=== PATIENT | female | born 1945 | race Caucasian/White ===

== ENCOUNTER 2018-02-11 10:02 | Emergency (ER) | payer MEDICARE, BC ==
[2018-02-11 10:16] VITALS: BP 159/76
--- NOTE | 2018-02-11 11:42 | EDM.PDOC ---
ED HPI GENERAL MEDICAL PROBLEM - General Chief Complaint: Abdominal Pain Stated Complaint: ABDOMINAL PAIN Time Seen by Provider: 02/11/18 10:13 Source of Information: Reports: Patient, RN Notes Reviewed - History of Present Illness INITIAL COMMENTS - FREE TEXT/NARRATIVE: 72 year old female comes in with intermitant upper abd pain and pain LLQ for about 1 week. Was worse this morning, now almost gone. No fever or chills. No N/V or diarrhea, occas. constipation, last BM yesterday. No chest pain or difficulty breathing. Hx of prior appy about 8 yrs ago. Abdominal Pain Score (Numeric/FACES): 7 - Related Data Allergies Allergy/AdvReac Type Severity Reaction Status Date / Time hydromorphone HCl Allergy Syncope Verified 02/11/18 10:12 [From Dilaudid] Penicillins Allergy Hives Verified 02/11/18 10:12 Home Meds: Home Meds Escitalopram Oxalate [Lexapro] 20 mg PO DAILY 06/02/16 [History] Levothyroxine 175 mcg PO ACBRK 06/02/16 [History] Lisinopril/Hydrochlorothiazide [Lisinopril-Hctz 20-12.5 mg Tab] 1 tab PO BID 03/15 [History] Past Medical History Cardiovascular History: Reports: Hypertension [employer] History: Reports: Musculoskeletal History: Reports: Arthritis Psychiatric History: Reports: Anxiety Endocrine/Metabolic History: Reports: Hypothyroidism - Infectious Disease History Infectious Disease History: Reports: Chicken Pox, Measles, Mumps - Past Surgical History GI Surgical History: Reports: Appendectomy, Other (See Below) Other GI Surgeries/Procedures: peritonitis from ruptured appendix Social & Family History - Tobacco Use Smoking Status *Q: Never Smoker - Recreational Drug Use Recreational Drug Use: No ED ROS GENERAL - Review of Systems Review Of Systems: See Below Constitutional: Denies: Fever, Chills HEENT: Denies: Throat Pain Respiratory: Denies: Shortness of Breath, Pleuritic Chest Pain, Cough Cardiovascular: Denies: Chest Pain, Palpitations GI/Abdominal: Reports: Abdominal Pain. Denies: Constipation, Diarrhea, Decreased Appetite, Nausea, Vomiting Musculoskeletal: Reports: No Symptoms Skin: Reports: No Symptoms Neurological: Reports: No Symptoms ED EXAM, GI/ABD - Physical Exam Exam: See Below General Appearance: Alert, No Apparent Distress Throat/Mouth: Normal Inspection Head: Atraumatic Neck: Supple Respiratory/Chest: No Respiratory Distress, Lungs Clear, Normal Breath Sounds Cardiovascular: Normal Peripheral Pulses, Regular Rate, Rhythm GI/Abdominal Exam: Soft, Other (minimal tenderness upper mid abd, LLQ and remainder of abd nontender at this time) Back Exam: No: CVA Tenderness (L), CVA Tenderness (R) Extremities: Normal Inspection. No: Pedal Edema, Leg Pain Neurological: Alert, Oriented, No Motor/Sensory Deficits Course - Vital Signs Last Recorded V/S: Last Vital Signs Temp 98.5 F 02/11/18 10:12 Pulse 77 02/11/18 10:12 Resp 20 02/11/18 10:12 BP 159/76 H 02/11/18 10:12 Pulse Ox 96 02/11/18 10:12 - Orders/Labs/Meds Orders: Active Orders 24 hr Category Date Time Status Abdomen 2V AP Flat Upright [CR] Stat Exams 02/11/18 11:09 Taken Labs: Laboratory Tests 02/11/18 02/11/18 Range/Units 11:51 11:51 WBC 6.57 (3.98-10.04) K/mm3 RBC 4.32 (3.98-5.22) M/mm3 Hgb 12.5 (11.2-15.7) gm/L Hct 38.9 (34.1-44.9) % MCV 90.0 (79.4-94.8) fl MCH 28.9 (25.6-32.2) pg MCHC 32.1 L (32.2-35.5) g/dl RDW Std Deviation 44.4 (36.4-46.3) fL Plt Count 249 (182-369) K/mm3 MPV 10.8 (9.4-12.3) fl Neut % (Auto) 64.9 (34.0-71.1) % Lymph % (Auto) 24.7 (19.3-51.7) % [place] % (Auto) 6.2 (4.7-12.5) % Eos % (Auto) 3.2 (0.7-5.8) Baso % (Auto) 0.5 (0.1-1.2) % Neut # (Auto) 4.27 (1.56-6.13) K/mm3 Lymph # (Auto) 1.62 (1.18-3.74) K/mm3 [place] # (Auto) 0.41 H (0.24-0.36) K/mm3 Eos # (Auto) 0.21 (0.04-0.36) K/mm3 Baso # (Auto) 0.03 (0.01-0.08) K/mm3 C-Reactive Protein 1.9 H* (<1.0) mg/dL - Re-Assessments/Exams Free Text/Narrative Re-Assessment/Exam: 02/11/18 15:10 WBC good, CRP very mildly elevated, I did not feel any sign of hernia on initial exam, on repeat exam when sitting she does have a bit of a buldge to the L of her inciscion when pressure applied to abd wall. X rays are fine. Discharge instr. as documeted. Departure - Departure Time of Disposition: 12:53 Disposition: Home, Self-Care 01 Condition: Fair Clinical Impression: Abdominal pain Qualifiers: Abdominal location: upper abdomen, unspecified Qualified Code(s): R10.10 - Upper abdominal pain, unspecified - Discharge Information Instructions: Abdominal Pain, Adult, [id number] Referrals: PCP,Not In Area [Primary Care Provider] - Forms: ED Department Discharge Additional Instructions: start a stool softener once or twice daily, drink plenty of water to maintain hydration, high fiber diet, See Dr Cano, General Surgeon at our [facility] medical clinic next available appt. Call [phone] for appt. Return to ED as needed if symptoms worsening in any way. - My Orders Last 24 Hours: My Active Orders 02/11/18 11:09 Abdomen 2V AP Flat Upright [CR] Stat - Assessment/Plan Last 24 Hours: My Active Orders 02/11/18 11:09 Abdomen 2V AP Flat Upright [CR] Stat
--- NOTE | 2018-02-12 10:00 | CR ---
Abdomen: Supine and upright views of the abdomen were obtained. Comparison: No previous abdominal x-ray. Bowel gas pattern appears normal. Slight scoliosis is present within the spine with minimal degenerative change. Small calcification is seen within the left pelvis compatible with incidental phlebolith. No other abnormal calcifications are seen. No soft tissue abnormality is seen. No free air is seen. Impression: 1. Incidental findings. Diagnostic code #2
== END 2018-02-11 13:19 | disposition home or self-care (01) ==
LOC: JD.ED 10:02
DX: R10.10 Upper abdominal pain, unspecified (principal); I10 Essential (primary) hypertension; E03.9 Hypothyroidism, unspecified; Z88.5 Allergy status to narcotic agent; Z88.0 Allergy status to penicillin; Z79.899 Other long term (current) drug therapy
CPT/HCPCS: 36415; 74019; 74019-26; 85025; 86140; 99284

== ENCOUNTER 2018-02-28 12:10 | Inpatient (IN) | payer MEDICARE, BC ==
[2018-02-28] MEDS ORDERED: Sodium Chloride 0.9% 10 ML Syringe FLUSH PRN ×2 (12:26→14:18)
[2018-02-28] MEDS ORDERED: Diltiazem 25 MG/5 ML SDV IVPUSH ONE ×3 (12:43→15:11)
[2018-02-28] MEDS ORDERED: Aspirin 81 MG Tab.Chew PO ONE (12:43)
[2018-02-28] MEDS ORDERED: Magnesium Sulfate/Water 2 GM in Premix Bag 1 BAG IV ONE (12:45)
[2018-02-28] MEDS ORDERED: Sodium Chloride 0.9% 1,000 ML IV SCH (12:45)
--- NOTE | 2018-02-28 12:54 | EDM.PDOC ---
ED HPI GENERAL MEDICAL PROBLEM - General Chief Complaint: Cardiovascular Problem Stated Complaint: HEART PROBLEMS Time Seen by Provider: 02/28/18 12:33 Source of Information: Reports: Patient History Limitations: Reports: No Limitations - History of Present Illness INITIAL COMMENTS - FREE TEXT/NARRATIVE: Patient is a 72 y/o female who presents to the E.D. complaining of irregular fast heart beat. 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 States she has been experiencing this for the past month. Episodes initially were short easily converting with holding her breath and thumping on her chest. Patient states as of recent the frequency of episodes and duration have increased. Yesterday the palpitations lasted almost all day. After eventually converting. States that today the palpitations are, about to not relieved with the above therapies. She's taken aspirin on intermittent basis. She is on no active anticoagulants. She has not seen her primary care provider for this. She does complain of some mild shortness of breath with exertion. No dizziness, no chest pain, no nausea no vomiting, no abdominal pain, no fever, no increased swelling to extremities, no PND, no orthopnea, no pain to the posterior aspect of the calves, no recent surgery, long distance travel, or history of DVT/PE. She has history of hypertension and is on lisinopril and HCTZ. Hypothyroidism on levothyroxine. Anxiety and depression on Lexapro. Patient does not smoke. She has no history of hypercholesteremia. 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: Other (see below) Other Treatments ASSOCIATE PROFESSOR OF LITERACY: none - Related Data Allergies Allergy/AdvReac Type Severity Reaction Status Date / Time Penicillins Allergy Hives Verified 02/28/18 17:26 hydromorphone HCl AdvReac Syncope Verified 03/01/18 07:20 [From Dilaudid] Home Meds: Home Meds Escitalopram Oxalate [Lexapro] 20 mg PO DAILY 06/02/16 [History] Levothyroxine 175 mcg PO ACBRK 06/02/16 [History] Lisinopril/Hydrochlorothiazide [Lisinopril-Hctz 20-12.5 mg Tab] 1 tab PO BID 03/15 [History] Acetaminophen [Tylenol Extra Strength] 500 mg PO BID 02/28/18 [History] Past Medical History Cardiovascular History: Reports: Hypertension 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: Musculoskeletal History: Reports: Arthritis Psychiatric History: Reports: Anxiety Endocrine/Metabolic History: Reports: Hypothyroidism - Infectious Disease History Infectious Disease History: Reports: Chicken Pox, Measles, Mumps - Past Surgical History GI Surgical History: Reports: Appendectomy, Hernia, Abdominal, Other (See Below) Other GI Surgeries/Procedures: peritonitis from ruptured appendix Social & Family History - Tobacco Use Smoking Status *Q: Never Smoker - Caffeine Use Caffeine Use: Reports: Coffee, Soda, Tea - Recreational Drug Use Recreational Drug Use: No ED ROS GENERAL - Review of Systems Review Of Systems: ROS reveals no pertinent complaints other than HPI. ED EXAM, GENERAL - Physical Exam Exam: See Below Exam Limited By: No Limitations General Appearance: Alert, WD/WN, No Apparent Distress Ears: Hearing Grossly Normal Nose: Normal Inspection Throat/Mouth: Normal Voice, No Airway Compromise Neck: Normal Inspection, Supple Respiratory/Chest: No Respiratory Distress, Lungs Clear, Normal Breath Sounds, No Accessory Muscle Use, Chest Non-Tender Cardiovascular: Normal Peripheral Pulses, Tachycardia, Irregularly Irregular Peripheral Pulses: 4+: Radial (L), Radial (R) GI/Abdominal: Normal Bowel Sounds, Soft, Non-Tender, No Organomegaly, No Distention Back Exam: Normal Inspection Extremities: Normal Inspection, Non-Tender, Normal Capillary Refill Neurological: Alert, Oriented, CN II-XII Intact, Normal Cognition, No Motor/ Sensory Deficits Psychiatric: Normal Affect, Normal Mood Skin Exam: Warm, Dry, Intact, Normal Color Course - Vital Signs Last Recorded V/S: Last Vital Signs Temp 98 F 03/01/18 07:44 Pulse 64 03/01/18 09:13 Resp 22 H 03/01/18 07:44 BP 96/60 03/01/18 09:13 Pulse Ox 94 L 03/01/18 04:00 - Orders/Labs/Meds Orders: Active Orders 24 hr Category Date Time Status Ambulate [RC] ASDIRECTED Care 02/28/18 15:33 Active Cardiac Monitoring [RC] CONTINUOUS Care 02/28/18 15:33 Active Height and Weight [RC] 04 Care 02/28/18 15:33 Active Intake and Output [RC] 04,16 Care 02/28/18 15:33 Active Oxygen Therapy [RC] .PRN Care 02/28/18 12:25 Active RT Aerosol Therapy [RC] ASDIRECTED Care 02/28/18 15:34 Active Up ad Paulette [RC] ASDIRECTED Care 02/28/18 15:33 Active VTE/DVT Education [RC] 10,22 Care 02/28/18 15:33 Active Consult to Case Management [CONS] Routine Cons 02/28/18 15:34 Active Consult to Sharepoint Net Developer [CONS] Routine Cons 02/28/18 15:34 Active Consult to Brand Coordinator [CONS] Routine Cons 02/28/18 15:34 Active Heart Healthy Diet [DIET] Diet 02/28/18 Dinner Active BASIC METABOLIC PANEL,BMP [CHEM] AM Lab 03/02/18 05:11 Ordered BASIC METABOLIC PANEL,BMP [CHEM] AM Lab 03/03/18 05:11 Ordered DD [D-DIMER QUANTITATIVE] [COAG] Stat Lab 02/28/18 12:50 Ordered MAGNESIUM [CHEM] AM Lab 03/02/18 05:11 Ordered MAGNESIUM [CHEM] AM Lab 03/03/18 05:11 Ordered Acetaminophen [Tylenol] Med 02/28/18 15:33 Active 650 mg PO Q4H PRN Acetaminophen/HYDROcodone [[place] 325-5 MG] Med 02/28/18 15:33 Active 1 tab PO Q4H PRN Albuterol/Ipratropium [DuoNeb 3.0-0.5 MG/3 ML] Med 02/28/18 15:33 Active 3 ml NEB Q4H PRN Bisacodyl [Dulcolax] Med 02/28/18 15:33 Active 5 mg PO DAILY PRN Citalopram [Celexa] Med 03/01/18 09:00 Active 40 mg PO DAILY Diltiazem 125 mg Med 02/28/18 15:15 Active Sodium Chloride 0.9% [Normal Saline] 100 ml IV TITRATE Docusate Sodium [Colace] Med 02/28/18 15:33 Active 100 mg PO BID PRN Docusate Sodium/Sennosides [Senna Plus] Med 02/28/18 15:33 Active 1 tab PO BID PRN LORazepam [Ativan] Med 02/28/18 15:33 Active 1 mg IV Q6H PRN Metoprolol Tartrate [Lopressor] Med 02/28/18 15:32 Active 5 mg IVPUSH Q4H PRN Metoprolol Tartrate [Lopressor] Med 02/28/18 21:00 Active 50 mg PO Q12HR Ondansetron [Zofran] Med 02/28/18 15:33 Active 4 mg IV Q6H PRN Polyethylene Glycol 3350 [MiraLAX] Med 02/28/18 15:33 Active 17 gm PO DAILY PRN Potassium Rep Pharmacy to Dose [Pharmacy to Dose - Med 02/28/18 15:45 Active Potassium Replacement] 1 dose .XX ASDIRECTED Promethazine [Phenergan] 12.5 mg Med 02/28/18 15:33 Active Sodium Chloride 0.9% [Normal Saline] 50 ml IV Q6H Sodium Chloride 0.9% [Saline Flush] Med 02/28/18 12:26 Active 10 ml FLUSH ASDIRECTED PRN Sodium Chloride 0.9% [Saline Flush] Med 02/28/18 14:18 Active 10 ml FLUSH ONETIME PRN Temazepam [Restoril] Med 02/28/18 15:33 Active 7.5 mg PO BEDTIME PRN hydrALAZINE [Apresoline] Med 02/28/18 15:32 Active 20 mg IVPUSH Q4H PRN Peripheral IV Insertion Adult [OM.PC] Routine Oth 02/28/18 12:26 Ordered Resuscitation Status Routine Resus Stat 02/28/18 15:33 Ordered Medication Orders Acetaminophen (Tylenol) 650 mg PO Q4H PRN PRN Reason: Pain (Mild 1-3)/fever Acetaminophen (Tylenol) 487.5 mg PO BID [facility] Last Admin: 03/01/18 09:14 Dose: 487.5 mg Admin: 02/28/18 20:24 Dose: 487.5 mg Hydrocodone Bitart/Acetaminophen ([place] 325-5 Mg) 1 tab PO Q4H PRN PRN Reason: Pain (moderate 4-6) Albuterol/Ipratropium (Duoneb 3.0-0.5 Mg/3 Ml) 3 ml NEB Q4H PRN PRN Reason: Shortness Of Breath/wheezing Apixaban (Eliquis) 5 mg PO BID [facility] Last Admin: 03/01/18 09:11 Dose: 5 mg Admin: 02/28/18 20:25 Dose: 5 mg Bisacodyl (Dulcolax) 5 mg PO DAILY PRN PRN Reason: Constipation Citalopram Hydrobromide (Celexa) 40 mg PO DAILY [facility] Last Admin: 03/01/18 09:11 Dose: Not Given Docusate Sodium (Colace) 100 mg PO BID PRN PRN Reason: Constipation Hydralazine HCl (Apresoline) 20 mg IVPUSH Q4H PRN PRN Reason: Hypertension Hydrochlorothiazide (Hydrochlorothiazide) 12.5 mg PO BID [facility] Last Admin: 03/01/18 09:13 Dose: Diltiazem HCl 125 mg/ Sodium (Chloride) 125 mls @ 5 mls/hr IV TITRATE [facility]; Protocol Last Titration: 02/28/18 20:25 Dose: 0 mg/hr, 0 mls/hr Titration: 02/28/18 20:14 Dose: 3 mg/hr, 3 mls/hr Titration: 02/28/18 18:47 Dose: 5 mg/hr, 5 mls/hr Titration: 02/28/18 18:02 Dose: 3 mg/hr, 3 mls/hr Admin: 02/28/18 15:54 Dose: 5 mg/hr, 5 mls/hr Promethazine HCl 12.5 mg/ (Sodium Chloride) 50.5 mls @ 100 mls/hr IV Q6H PRN PRN Reason: Nausea/Vomiting Levothyroxine Sodium (Levothyroxine) 150 mcg PO ACBRK [facility] Last Admin: 03/01/18 06:22 Dose: 150 mcg Lisinopril (Prinivil) 20 mg PO BID [facility] Last Admin: 03/01/18 09:16 Dose: Lorazepam (Ativan) 1 mg IV Q6H PRN PRN Reason: Anxiety Metoprolol Tartrate (Lopressor) 5 mg IVPUSH Q4H PRN PRN Reason: Tachycardia Metoprolol Tartrate (Lopressor) 50 mg PO Q12HR [facility] Last Admin: 03/01/18 09:13 Dose: 50 mg Admin: 02/28/18 20:25 Dose: 50 mg Ondansetron HCl (Zofran) 4 mg IV Q6H PRN PRN Reason: Nausea/Vomiting Polyethylene Glycol (Miralax) 17 gm PO DAILY PRN PRN Reason: Constipation Potassium Chloride (Pharmacy To Dose - Potassium Replacement) 1 dose .XX ASDIRECTED [facility] Senna/Docusate Sodium (Senna Plus) 1 tab PO BID PRN PRN Reason: Constipation Sodium Chloride (Saline Flush) 10 ml FLUSH ASDIRECTED PRN PRN Reason: Keep Vein Open Last Admin: 02/28/18 12:57 Dose: 10 ml Sodium Chloride (Saline Flush) 10 ml FLUSH ONETIME PRN PRN Reason: IV FLUSH Last Admin: 02/28/18 14:42 Dose: 10 ml Temazepam (Restoril) 7.5 mg PO BEDTIME PRN PRN Reason: Sleep Labs: Laboratory Tests 02/28/18 02/28/18 02/28/18 Range/Units 12:24 12:24 12:24 WBC 10.05 H (3.98-10.04) K/mm3 RBC 4.32 (3.98-5.22) M/mm3 Hgb 12.4 (11.2-15.7) gm/L Hct 37.8 (34.1-44.9) % MCV 87.5 (79.4-94.8) fl MCH 28.7 (25.6-32.2) pg MCHC 32.8 (32.2-35.5) g/dl RDW Std Deviation 41.7 (36.4-46.3) fL Plt Count 296 (182-369) K/mm3 MPV 10.7 (9.4-12.3) fl Neutrophils % (Manual) 52 (40-60) % Band Neutrophils % 0 (0-10) % Lymphocytes % (Manual) 41 H (20-40) % Atypical Lymphs % 0 % Monocytes % (Manual) 4 (2-10) % Eosinophils % (Manual) 3 (0.7-5.8) % Basophils % (Manual) 0 L (0.1-1.2) Platelet Estimate Adequate RBC Morph Comment Normal PT (8.0-13.0) SECONDS INR APTT (22-36) SECONDS D-Dimer, Quantitative (0.19-0.59) mg/L Sodium 139 (136-145) mEq/L Potassium 3.8 (3.5-5.1) mEq/L Chloride 101 (98-107) mEq/L Carbon Dioxide 24 (21-32) mEq/L Anion Gap 17.8 H (5-15) BUN 24 H (7-18) mg/dL Creatinine 0.9 (0.55-1.02) mg/dL Est Cr Clr Drug Dosing 52.34 mL/min Estimated GFR (MDRD) > 60 (>60) mL/min BUN/Creatinine Ratio 26.7 H (14-18) Glucose 120 H (80-115) mg/dL Hemoglobin A1c (4.50-6.20) % Calcium 9.0 (8.5-10.1) mg/dL Magnesium 1.6 L (1.8-2.4) mg/dl Total Bilirubin 0.4 (0.2-1.0) mg/dL AST 15 (15-37) U/L ALT 19 (14-59) U/L Alkaline Phosphatase 73 (46-116) U/L Troponin I < 0.017 (0.00-0.056) ng/mL NT-Pro-B Natriuret Pep 348 H (0-125) pg/mL Total Protein 7.5 (6.4-8.2) g/dl Albumin 3.4 (3.4-5.0) g/dl Globulin 4.1 gm/dL Albumin/Globulin Ratio 0.8 L (1-2) Free T4 (0.76-1.46) ng/dL TSH 3rd Generation 0.318 L (0.358-3.74) uIU/mL Urine Color (Yellow) Urine Appearance (Clear) Urine pH (5.0-8.0) Ur Specific [place] (1.005-1.030) Urine Protein (Negative) Urine Glucose (UA) (Negative) Urine Ketones (Negative) Urine Occult Blood (Negative) Urine Nitrite (Negative) Urine Bilirubin (Negative) Urine Urobilinogen (0.2-1.0) Ur Leukocyte Esterase (Negative) Urine RBC (0-5) /hpf Urine WBC (0-5) /hpf Ur Epithelial Cells (0-5) /hpf Urine Bacteria (FEW) /hpf Urine Mucus (FEW) /hpf 02/28/18 02/28/18 02/28/18 Range/Units 12:24 12:50 12:50 WBC (3.98-10.04) K/mm3 RBC (3.98-5.22) M/mm3 Hgb (11.2-15.7) gm/L Hct (34.1-44.9) % MCV (79.4-94.8) fl MCH (25.6-32.2) pg MCHC (32.2-35.5) g/dl RDW Std Deviation (36.4-46.3) fL Plt Count (182-369) K/mm3 MPV (9.4-12.3) fl Neutrophils % (Manual) (40-60) % Band Neutrophils % (0-10) % Lymphocytes % (Manual) (20-40) % Atypical Lymphs % % Monocytes % (Manual) (2-10) % Eosinophils % (Manual) (0.7-5.8) % Basophils % (Manual) (0.1-1.2) Platelet Estimate RBC Morph Comment PT 10.7 (8.0-13.0) SECONDS INR 1.00 APTT 28 (22-36) SECONDS D-Dimer, Quantitative 1.11 H (0.19-0.59) mg/L Sodium (136-145) mEq/L Potassium (3.5-5.1) mEq/L Chloride (98-107) mEq/L Carbon Dioxide (21-32) mEq/L Anion Gap (5-15) BUN (7-18) mg/dL Creatinine (0.55-1.02) mg/dL Est Cr Clr Drug Dosing mL/min Estimated GFR (MDRD) (>60) mL/min BUN/Creatinine Ratio (14-18) Glucose (80-115) mg/dL Hemoglobin A1c 5.60 (4.50-6.20) % Calcium (8.5-10.1) mg/dL Magnesium (1.8-2.4) mg/dl Total Bilirubin (0.2-1.0) mg/dL AST (15-37) U/L ALT (14-59) U/L Alkaline Phosphatase (46-116) U/L Troponin I (0.00-0.056) ng/mL NT-Pro-B Natriuret Pep (0-125) pg/mL Total Protein (6.4-8.2) g/dl Albumin (3.4-5.0) g/dl Globulin gm/dL Albumin/Globulin Ratio (1-2) Free T4 (0.76-1.46) ng/dL TSH 3rd Generation (0.358-3.74) uIU/mL Urine Color (Yellow) Urine Appearance (Clear) Urine pH (5.0-8.0) Ur Specific [place] (1.005-1.030) Urine Protein (Negative) Urine Glucose (UA) (Negative) Urine Ketones (Negative) Urine Occult Blood (Negative) Urine Nitrite (Negative) Urine Bilirubin (Negative) Urine Urobilinogen (0.2-1.0) Ur Leukocyte Esterase (Negative) Urine RBC (0-5) /hpf Urine WBC (0-5) /hpf Ur Epithelial Cells (0-5) /hpf Urine Bacteria (FEW) /hpf Urine Mucus (FEW) /hpf 02/28/18 02/28/18 02/28/18 Range/Units 15:05 15:05 15:20 WBC (3.98-10.04) K/mm3 RBC (3.98-5.22) M/mm3 Hgb (11.2-15.7) gm/L Hct (34.1-44.9) % MCV (79.4-94.8) fl MCH (25.6-32.2) pg MCHC (32.2-35.5) g/dl RDW Std Deviation (36.4-46.3) fL Plt Count (182-369) K/mm3 MPV (9.4-12.3) fl Neutrophils % (Manual) (40-60) % Band Neutrophils % (0-10) % Lymphocytes % (Manual) (20-40) % Atypical Lymphs % % Monocytes % (Manual) (2-10) % Eosinophils % (Manual) (0.7-5.8) % Basophils % (Manual) (0.1-1.2) Platelet Estimate RBC Morph Comment PT (8.0-13.0) SECONDS INR APTT (22-36) SECONDS D-Dimer, Quantitative (0.19-0.59) mg/L Sodium (136-145) mEq/L Potassium (3.5-5.1) mEq/L Chloride (98-107) mEq/L Carbon Dioxide (21-32) mEq/L Anion Gap (5-15) BUN (7-18) mg/dL Creatinine (0.55-1.02) mg/dL Est Cr Clr Drug Dosing mL/min Estimated GFR (MDRD) (>60) mL/min BUN/Creatinine Ratio (14-18) Glucose (80-115) mg/dL Hemoglobin A1c (4.50-6.20) % Calcium (8.5-10.1) mg/dL Magnesium (1.8-2.4) mg/dl Total Bilirubin (0.2-1.0) mg/dL AST (15-37) U/L ALT (14-59) U/L Alkaline Phosphatase (46-116) U/L Troponin I < 0.017 (0.00-0.056) ng/mL NT-Pro-B Natriuret Pep (0-125) pg/mL Total Protein (6.4-8.2) g/dl Albumin (3.4-5.0) g/dl Globulin gm/dL Albumin/Globulin Ratio (1-2) Free T4 1.73 H (0.76-1.46) ng/dL TSH 3rd Generation (0.358-3.74) uIU/mL Urine Color Yellow (Yellow) Urine Appearance Clear (Clear) Urine pH 6.0 (5.0-8.0) Ur Specific [place] 1.010 (1.005-1.030) Urine Protein Negative (Negative) Urine Glucose (UA) Negative (Negative) Urine Ketones Negative (Negative) Urine Occult Blood Negative (Negative) Urine Nitrite Negative (Negative) Urine Bilirubin Negative (Negative) Urine Urobilinogen 0.2 (0.2-1.0) Ur Leukocyte Esterase Negative (Negative) Urine RBC 0-5 (0-5) /hpf Urine WBC 0-5 (0-5) /hpf Ur Epithelial Cells 0-5 (0-5) /hpf Urine Bacteria Few (FEW) /hpf Urine Mucus Not seen (FEW) /hpf Meds: Medications Generic Name Dose Route Start Last Admin Trade Name Freq PRN Reason Stop Dose Admin Acetaminophen 650 mg 02/28/18 15:33 Tylenol PO Q4H PRN Pain (Mild 1-3)/fever Acetaminophen 487.5 mg 02/28/18 21:00 03/01/18 09:14 Tylenol PO 487.5 mg BID BRI Administration Hydrocodone Bitart/Acetaminophen 1 tab 02/28/18 15:33 [place] 325-5 Mg PO Q4H PRN Pain (moderate 4-6) Albuterol/Ipratropium 3 ml 02/28/18 15:33 Duoneb 3.0-0.5 Mg/3 Ml NEB Q4H PRN Shortness Of Breath/wheezing Apixaban 5 mg 02/28/18 21:00 03/01/18 09:11 Eliquis PO 5 mg BID [facility] Administration Bisacodyl 5 mg 02/28/18 15:33 Dulcolax PO DAILY PRN Constipation Citalopram Hydrobromide 40 mg 03/01/18 09:00 03/01/18 09:11 Celexa PO Not Given DAILY [facility] Docusate Sodium 100 mg 02/28/18 15:33 Colace PO BID PRN Constipation Hydralazine HCl 20 mg 02/28/18 15:32 Apresoline IVPUSH Q4H PRN Hypertension Hydrochlorothiazide 12.5 mg 03/01/18 09:00 03/01/18 09:13 Hydrochlorothiazide PO Not Given BID [facility] Diltiazem HCl 125 mg/ Sodium 125 mls @ 5 mls/hr 02/28/18 15:15 02/28/18 20:25 Chloride IV 0 mg/hr TITRATE BRI 0 mls/hr Titration Protocol 5 MG/HR Promethazine HCl 12.5 mg/ 50.5 mls @ 100 mls/hr 02/28/18 15:33 Sodium Chloride IV Q6H PRN Nausea/Vomiting Levothyroxine Sodium 150 mcg 03/01/18 06:00 03/01/18 06:22 Levothyroxine PO 150 mcg ACBRK [facility] Administration Lisinopril 20 mg 03/01/18 07:26 03/01/18 09:16 Prinivil PO Not Given BID [facility] Lorazepam 1 mg 02/28/18 15:33 Ativan IV Q6H PRN Anxiety Metoprolol Tartrate 5 mg 02/28/18 15:32 Lopressor IVPUSH Q4H PRN Tachycardia Metoprolol Tartrate 50 mg 02/28/18 21:00 03/01/18 09:13 Lopressor PO 50 mg Q12HR [facility] Administration Ondansetron HCl 4 mg 02/28/18 15:33 Zofran IV Q6H PRN Nausea/Vomiting Polyethylene Glycol 17 gm 02/28/18 15:33 Miralax PO DAILY PRN Constipation Potassium Chloride 1 dose 02/28/18 15:45 Pharmacy To Dose - Potassium Replacement .XX ASDIRECTED [facility] Senna/Docusate Sodium 1 tab 02/28/18 15:33 Senna Plus PO BID PRN Constipation Sodium Chloride 10 ml 02/28/18 12:26 02/28/18 12:57 Saline Flush FLUSH 10 ml ASDIRECTED PRN Administration Keep Vein Open Sodium Chloride 10 ml 02/28/18 14:18 02/28/18 14:42 Saline Flush FLUSH 10 ml ONETIME PRN Administration IV FLUSH Temazepam 7.5 mg 02/28/18 15:33 Restoril PO BEDTIME PRN Sleep Discontinued Medications Generic Name Dose Route Start Last Admin Trade Name Freq PRN Reason Stop Dose Admin Aspirin 324 mg 02/28/18 12:43 02/28/18 12:55 Aspirin PO 02/28/18 12:44 324 mg ONETIME ONE Administration Diltiazem HCl 20 mg 02/28/18 12:43 02/28/18 12:52 Diltiazem IVPUSH 02/28/18 12:44 20 mg ONETIME ONE Administration Diltiazem HCl 20 mg 02/28/18 13:16 02/28/18 13:31 Diltiazem IVPUSH 02/28/18 13:17 20 mg ONETIME ONE Administration Diltiazem HCl 180 mg 02/28/18 13:19 02/28/18 13:33 Cardizem Cd PO 02/28/18 13:20 180 mg ONETIME ONE Administration Diltiazem HCl 10 mg 02/28/18 15:11 02/28/18 15:36 Diltiazem IVPUSH 02/28/18 15:12 10 mg ONETIME ONE Administration Magnesium Sulfate 2 gm/ Premix 50 mls @ 25 mls/hr 02/28/18 12:45 02/28/18 12: 56 IV 02/28/18 14:44 25 mls/hr ONETIME ONE Administration Sodium Chloride 1,000 mls @ 250 mls/hr 02/28/18 12:45 02/28/18 12:58 Normal Saline IV 250 mls/hr ASDIRECTED BRI Administration Sodium Chloride 250 mls @ 80 mls/min 02/28/18 14:30 02/28/18 14:51 Normal Saline IV 80 mls/min ASDIRECTED BRI Administration Sodium Chloride 500 mls @ 999 mls/hr 03/01/18 02:16 03/01/18 02:30 Normal Saline IV 03/01/18 02:46 999 mls/hr .BOLUS ONE Administration Sodium Chloride Confirm 03/01/18 02:18 03/01/18 02:28 Normal Saline Administered 03/01/18 02:19 Not Given Dose 500 mls @ as directed .ROUTE .STK-MED ONE Iopamidol 100 ml 02/28/18 14:18 02/28/18 14:42 Isovue-370 (76%) IVPUSH 02/28/18 14:19 100 ml ONETIME ONE Administration Iopamidol 50 ml 02/28/18 14:18 02/28/18 14:42 Isovue-370 (76%) IVPUSH 02/28/18 14:19 50 ml ONETIME ONE Administration Levothyroxine Sodium 175 mcg 03/01/18 06:00 Levothyroxine PO ACBRK BRI Non-Formulary Medication 1 tab 02/28/18 21:00 02/28/18 20:27 Lisinopril/Hydrochlorothiazide [Lisinopril-Hctz 20-12.5 Mg Tab] PO Not Given BID [facility] Potassium Chloride 40 meq 02/28/18 17:00 02/28/18 20:24 Klor-Con M20 PO 02/28/18 21:01 40 meq Q4H BRI Administration - Re-Assessments/Exams Free Text/Narrative Re-Assessment/Exam: EKG atrial fibrillation rate 147 variable with no acute ST changes. BP and SPO2 stable. Orderd peripheral IVwith asa 324mg PO, diltiazem 20 mg IVP, mag 2 grams IV, and NS 250ml/hr bolus. Initial labs and studies include: CBC, C14, Mg, Pro BNP, Coag studies, troponin , tsh, ua, and cxr. Will provide NS bolus 250mls with diltiazem push. HR has decreased to 100-128 variable. Remains A-Fib. Will push another 20mgs. This will be pushed as 10mg boluses to a total of 20mgs. In addition ordered cardiazem cd 180mgpo. CXR: Enlarged heart with no acute findings. Reviewed with Dr. Willett. Final interpretation is pending. Labs reviewed: CBC essentially normal. Sodium 139, potassium 3.8, CO2 24, G 17.8 , 24, creatinine 0.9, glucose 120, magnesium low 1.6, troponin less than 0.017. ProBNP is 348. TSH is low at 0.318. D-Dimer is 1.11. CT angio of the chest PE protocol ordered. 02/28/18 13:57 2nd bolus of diltiazem. HR decreased into the 90's with a-fib as rhythm. BP 110/64. Will hold off in starting drip at this time. She just received oral cardiazem with last bolus.Will see if this provides optimum rate control. If no rate control will potentially add additional bolus of dilitiazem and/or gtt with possible admission.CT chest pending. Patient has inadquate rate control after CT. HR 120's. BP normotensive. Ordered 10mg IVP and cardizem gtt. CT of the abdomen and pelvis: No findings of pulmonary embolism. Questionable partially visualized take one calculus within the left kidney. Noncontrast CT study could be obtained to clinically confirm if clinically needed. This can be performed on emergency. Other incidental findings. 02/28/18 15:[address] and CT results with the patient. Requests to be admitted for further diagnositic testing in house. [address] [facility]ers [employer]. He has accepted the patient. MCG completed. Patient has not been administered the Diltiazem 10 mg IVP and gtt. 2nd troponin is pending. Departure - Departure Time of Disposition: 15:35 Disposition: Admitted As Inpatient 68 Condition: Good Clinical Impression: New onset atrial fibrillation - My Orders Last 24 Hours: My Active Orders 02/28/18 12:25 Oxygen Therapy [RC] .PRN 02/28/18 12:26 Sodium Chloride 0.9% [Saline Flush] 10 ml FLUSH ASDIRECTED PRN Peripheral IV Insertion Adult [OM.PC] Routine 02/28/18 12:50 DD [D-DIMER QUANTITATIVE] [COAG] Stat 02/28/18 14:18 Sodium Chloride 0.9% [Saline Flush] 10 ml FLUSH ONETIME PRN 02/28/18 15:15 Diltiazem 125 mg Sodium Chloride 0.9% [Normal Saline] 100 ml IV TITRATE - Assessment/Plan Last 24 Hours: My Active Orders 02/28/18 12:25 Oxygen Therapy [RC] .PRN 02/28/18 12:26 Sodium Chloride 0.9% [Saline Flush] 10 ml FLUSH ASDIRECTED PRN Peripheral IV Insertion Adult [OM.PC] Routine 02/28/18 12:50 DD [D-DIMER QUANTITATIVE] [COAG] Stat 02/28/18 14:18 Sodium Chloride 0.9% [Saline Flush] 10 ml FLUSH ONETIME PRN 02/28/18 15:15 Diltiazem 125 mg Sodium Chloride 0.9% [Normal Saline] 100 ml IV TITRATE
[2018-02-28] MEDS ORDERED: Diltiazem 180 MG Cap.CD PO ONE (13:19)
[2018-02-28] MEDS ORDERED: Iopamidol 755 Mg/ML 100 ML Bottle IVPUSH ONE (14:18)
[2018-02-28] MEDS ORDERED: Iopamidol 755 MG/ML 50 ML Bottle IVPUSH ONE (14:18)
[2018-02-28] MEDS ORDERED: Sodium Chloride 0.9% 250 ML IV SCH (14:30)
[2018-02-28] MEDS ORDERED: Diltiazem 125 MG in Sodium Chloride 0.9% 100 ML IV SCH (15:15)
--- NOTE | 2018-02-28 15:18 | CT ---
CT chest Technique: Multiple axial sections through the chest were obtained. Intravenous contrast was utilized. Study has been performed as a pulmonary angiogram protocol. Comparison: Prior chest x-ray performed on the same day at time (12:34 PM) Findings: Pulmonary arteries are well-opacified. There are no filling defects seen to indicate pulmonary embolism. Mild coronary artery calcification is seen. Aorta shows no aneurysmal dilatation or dissection. Mediastinum and hilar regions show no adenopathy or mass. No axillary adenopathy is seen. No pericardial thickening is identified. Increased density is noted within the left kidney. This increased density appears to represent a partially visualized staghorn calculus, noncontrast CT would be needed to confirm. Other portions of the visualized upper abdominal structures shows a small hiatal hernia but otherwise appear unremarkable. Lungs are clear. No pleural effusions or acute parenchymal changes seen. No pneumothorax is seen. Bone window settings were reviewed which shows mild scattered degenerative change within the spine. Impression: 1. No findings of pulmonary embolism. 2. Questionable partially visualized staghorn calculus within the left kidney. Noncontrast CT abdomen study could be obtained to confirm if clinically needed. This can be performed non-emergently. 3. Other incidental findings. Diagnostic code #2
[2018-02-28] MEDS ORDERED: hydrALAZINE 20 MG/ML SDV IVPUSH PRN (15:32)
[2018-02-28] MEDS ORDERED: Metoprolol Tartrate 5 MG/5 ML SDV IVPUSH PRN (15:32)
[2018-02-28] MEDS ORDERED: Acetaminophen 325 MG Tab PO PRN (15:33)
[2018-02-28] MEDS ORDERED: Polyethylene Glycol 3350 Powder 17 GM Packet PO PRN (15:33)
[2018-02-28] MEDS ORDERED: Ondansetron 4 MG/2 ML SDV IV PRN (15:33)
[2018-02-28] MEDS ORDERED: Albuterol/Ipratropium 3.0-0.5 MG/3 ML Neb Soln NEB PRN (15:33)
[2018-02-28] MEDS ORDERED: Acetaminophen/HYDROcodone 325-5 MG Tab PO PRN (15:33)
[2018-02-28] MEDS ORDERED: Promethazine 12.5 MG in Sodium Chloride 0.9% 50 ML IV PRN (15:33)
[2018-02-28] MEDS ORDERED: LORazepam 2 MG/ML SDV IV PRN (15:33)
[2018-02-28] MEDS ORDERED: Temazepam 7.5 MG Cap PO PRN (15:33)
[2018-02-28] MEDS ORDERED: Docusate Sodium 100 MG Cap PO PRN (15:33)
[2018-02-28] MEDS ORDERED: Bisacodyl 5 MG Tab PO PRN (15:33)
--- NOTE | 2018-02-28 15:37 | PCM.HP ---
H&P History of Present Illness - General Date of Service: 02/28/18 Admit Problem/Dx: New Onset of Atrial Fibrillation with RVR Source of Information: Patient, Old Records, Provider, RN Notes Reviewed History Limitations: Reports: No Limitations - History of Present Illness Initial Comments - Free Text/Narative: This is a 72 yo elderly white female with past medical hx/o HTN, OA/DJD, Hypothyroidism and Morbid Obesity who comes in to day for heart palpitations that has been going on for a month now, on and off. She does not follow a inside tester and she [place] [address] [facility]. 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 Upon presentation to ED, she was found with a HR in the 150s. Her initial work up in ED shows a CBC remarkable for WBC of 10.05, and Lymphocytes of 41%. Her coagulation studies show a PT of 10.7, INR of 1, APTT of 28 and D-Dimer of 1.11. Her chemistry is significant for AG of 17.8, BUN of 24, BS of 120, Mg of 1.6, ProBNP of 348, FT4 of 1.73 and TSH of 0.318. Her UA is negative for UTI. Her CXR and Chest CT scan both show no acute abnormal findings. Patient is being admitted for medical management of atrial fibrillation with rvr. She is full code. 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: Musculoskeletal History: Reports: Arthritis Psychiatric History: Reports: Anxiety Endocrine/Metabolic History: Reports: Hypothyroidism - Infectious Disease History Infectious Disease History: Reports: Chicken Pox, Measles, Mumps - Past Surgical History GI Surgical History: Reports: Appendectomy, Hernia, Abdominal, Other (See Below) Other GI Surgeries/Procedures: peritonitis from ruptured appendix Social & Family History - Tobacco Use Smoking Status *Q: Never Smoker - Caffeine Use Caffeine Use: Reports: Coffee, Soda, Tea - Recreational Drug Use Recreational Drug Use: No H&P Review of Systems - Review of Systems: Review Of Systems: See Below General: Denies: Fever, Chills, Malaise, Weakness, Fatigue HEENT: Reports: No Symptoms Pulmonary: Denies: Shortness of Breath Cardiovascular: Reports: Palpitations, Dyspnea on Exertion, Edema. Denies: Chest Pain, Orthopnea, Lightheadedness, Syncope, Claudication, Blood Pressure Problem Gastrointestinal: Denies: Abdominal Pain, Decreased Appetite, Nausea, Vomiting Genitourinary: Reports: No Symptoms Musculoskeletal: Reports: Joint Pain, Other (knee pain) Skin: Denies: Cyanosis Psychiatric: Denies: Depression, Anxiety, Agitation, Hallucinations Neurological: Reports: Gait Disturbance. Denies: Confusion, Difficulty Walking , Weakness Hematologic/Lymphatic: Reports: No Symptoms Immunologic: Reports: No Symptoms Exam - Exam Exam: See Below - Vital Signs Vital Signs: Last Vital Signs Temp 35.9 C 02/28/18 12:20 Pulse 156 H 02/28/18 12:20 Resp 23 H 02/28/18 12:20 BP 155/109 H 02/28/18 12:20 Pulse Ox 96 02/28/18 12:20 Weight: 141.974 kg - Exam General: Alert, Oriented, Cooperative HEENT: Conjunctiva Clear, EACs Clear, EOMI, Hearing Intact, Mucosa Moist & [place] , Nares Patent, Normal Nasal Septum, Posterior Pharynx Clear, Pupils Equal, Pupils Reactive Neck: Supple, Trachea Midline Lungs: Normal Respiratory Effort, Decreased Breath Sounds Cardiovascular: Irregular Rhythm. No: Systolic Murmur GI/Abdominal Exam: Normal Bowel Sounds, Soft, Non-Tender, No Organomegaly, No Distention, No Abnormal Bruit, No Mass (Female) Exam: Deferred Rectal (Female) Exam: Deferred Back Exam: Normal Inspection, Decreased Range of Motion Extremities: Normal Inspection, Normal Range of Motion, Non-Tender, No Pedal Edema, Normal Capillary Refill, Other (trace bilateral lower extremity edema) Peripheral Pulses: 3+: Posterior Tibial (L), Posterior Tibial (R), Dorsalis Pedis (L), Dorsalis Pedis (R) Skin: Warm, Dry, Intact Neuro Extensive - Mental Status: Oriented x3, Normal Cognition, Memory Intact Neuro Extensive - Motor, Sensory, Reflexes: CN II-XII Intact. No: Normal Gait Psychiatric: Alert, Normal Affect, Normal Mood - Patient Data Lab Results Last 24 hrs: Laboratory Results - last 24 hr 02/28/18 02/28/18 02/28/18 Range/Units 12:24 12:24 12:24 WBC 10.05 H (3.98-10.04) K/mm3 RBC 4.32 (3.98-5.22) M/mm3 Hgb 12.4 (11.2-15.7) gm/L Hct 37.8 (34.1-44.9) % MCV 87.5 (79.4-94.8) fl MCH 28.7 (25.6-32.2) pg MCHC 32.8 (32.2-35.5) g/dl RDW Std Deviation 41.7 (36.4-46.3) fL Plt Count 296 (182-369) K/mm3 MPV 10.7 (9.4-12.3) fl Neutrophils % (Manual) 52 (40-60) % Band Neutrophils % 0 (0-10) % Lymphocytes % (Manual) 41 H (20-40) % Atypical Lymphs % 0 % Monocytes % (Manual) 4 (2-10) % Eosinophils % (Manual) 3 (0.7-5.8) % Basophils % (Manual) 0 L (0.1-1.2) Platelet Estimate Adequate RBC Morph Comment Normal PT (8.0-13.0) SECONDS INR APTT (22-36) SECONDS D-Dimer, Quantitative (0.19-0.59) mg/L Sodium 139 (136-145) mEq/L Potassium 3.8 (3.5-5.1) mEq/L Chloride 101 (98-107) mEq/L Carbon Dioxide 24 (21-32) mEq/L Anion Gap 17.8 H (5-15) BUN 24 H (7-18) mg/dL Creatinine 0.9 (0.55-1.02) mg/dL Est Cr Clr Drug Dosing 52.34 mL/min Estimated GFR (MDRD) > 60 (>60) mL/min BUN/Creatinine Ratio 26.7 H (14-18) Glucose 120 H (80-115) mg/dL Calcium 9.0 (8.5-10.1) mg/dL Magnesium 1.6 L (1.8-2.4) mg/dl Total Bilirubin 0.4 (0.2-1.0) mg/dL AST 15 (15-37) U/L ALT 19 (14-59) U/L Alkaline Phosphatase 73 (46-116) U/L Troponin I < 0.017 (0.00-0.056) ng/mL NT-Pro-B Natriuret Pep 348 H (0-125) pg/mL Total Protein 7.5 (6.4-8.2) g/dl Albumin 3.4 (3.4-5.0) g/dl Globulin 4.1 gm/dL Albumin/Globulin Ratio 0.8 L (1-2) TSH 3rd Generation 0.318 L (0.358-3.74) uIU/mL 02/28/18 02/28/18 02/28/18 Range/Units 12:50 12:50 15:05 WBC (3.98-10.04) K/mm3 RBC (3.98-5.22) M/mm3 Hgb (11.2-15.7) gm/L Hct (34.1-44.9) % MCV (79.4-94.8) fl MCH (25.6-32.2) pg MCHC (32.2-35.5) g/dl RDW Std Deviation (36.4-46.3) fL Plt Count (182-369) K/mm3 MPV (9.4-12.3) fl Neutrophils % (Manual) (40-60) % Band Neutrophils % (0-10) % Lymphocytes % (Manual) (20-40) % Atypical Lymphs % % Monocytes % (Manual) (2-10) % Eosinophils % (Manual) (0.7-5.8) % Basophils % (Manual) (0.1-1.2) Platelet Estimate RBC Morph Comment PT 10.7 (8.0-13.0) SECONDS INR 1.00 APTT 28 (22-36) SECONDS D-Dimer, Quantitative 1.11 H (0.19-0.59) mg/L Sodium (136-145) mEq/L Potassium (3.5-5.1) mEq/L Chloride (98-107) mEq/L Carbon Dioxide (21-32) mEq/L Anion Gap (5-15) BUN (7-18) mg/dL Creatinine (0.55-1.02) mg/dL Est Cr Clr Drug Dosing mL/min Estimated GFR (MDRD) (>60) mL/min BUN/Creatinine Ratio (14-18) Glucose (80-115) mg/dL Calcium (8.5-10.1) mg/dL Magnesium (1.8-2.4) mg/dl Total Bilirubin (0.2-1.0) mg/dL AST (15-37) U/L ALT (14-59) U/L Alkaline Phosphatase (46-116) U/L Troponin I < 0.017 (0.00-0.056) ng/mL NT-Pro-B Natriuret Pep (0-125) pg/mL Total Protein (6.4-8.2) g/dl Albumin (3.4-5.0) g/dl Globulin gm/dL Albumin/Globulin Ratio (1-2) TSH 3rd Generation (0.358-3.74) uIU/mL Result Diagrams: 03/01/18 05:25 03/01/18 05:25 EKG INTERPRETATION EKG Date: 02/28/18 Rhythm: A-Fib Rate (Beats/Min): 147 QT: Normal Problem List Initiated/Reviewed/Updated: Yes Orders Last 24hrs: Active Orders 24 hr Category Date Time Status Ambulate [RC] ASDIRECTED Care 02/28/18 15:33 Ordered Cardiac Monitoring [RC] CONTINUOUS Care 02/28/18 15:33 Ordered Height and Weight [RC] DAILY Care 02/28/18 15:33 Ordered Intake and Output [RC] QSHIFT Care 02/28/18 15:33 Ordered Oxygen Therapy [RC] ASDIRECTED Care 02/28/18 12:25 Active Oxygen Therapy [RC] PRN Care 02/28/18 15:33 Ordered Peripheral IV Care [RC] . DIRECTED Care 02/28/18 12:26 Active RT Aerosol Therapy [RC] ASDIRECTED Care 02/28/18 15:34 Ordered Up ad Paulette [RC] ASDIRECTED Care 02/28/18 15:33 Ordered VTE/DVT Education [RC] PER UNIT ROUTINE Care 02/28/18 15:33 Ordered Vital Signs [RC] Q4H Care 02/28/18 15:33 Ordered Consult to Case Management [CONS] Routine Cons 02/28/18 15:34 Ordered Consult to [employer] Tenn[employer] [CONS] Routine Cons 02/28/18 15:34 Ordered Consult to University Lecturer [CONS] Routine Cons 02/28/18 15:34 Ordered Heart Healthy Diet [DIET] Diet 02/28/18 Dinner Ordered Chest 1V Frontal [CR] Stat Exams 02/28/18 12:26 Taken A1C [GLYCOSYLATED HEMOGLOBIN,HGBA1C] [CHEM] Stat Lab 02/28/18 15:32 Ordered BASIC METABOLIC PANEL,BMP [CHEM] AM Lab 03/01/18 05:11 Ordered BASIC METABOLIC PANEL,BMP [CHEM] AM Lab 03/02/18 05:11 Ordered BASIC METABOLIC PANEL,BMP [CHEM] AM Lab 03/03/18 05:11 Ordered CBC WITH AUTO DIFF [HEME] AM Lab 03/01/18 05:11 Ordered DD [D-DIMER QUANTITATIVE] [COAG] Stat Lab 02/28/18 12:50 Ordered MAGNESIUM [CHEM] AM Lab 03/01/18 05:11 Ordered MAGNESIUM [CHEM] AM Lab 03/02/18 05:11 Ordered MAGNESIUM [CHEM] AM Lab 03/03/18 05:11 Ordered T4 FREE [CHEM] Stat Lab 02/28/18 15:27 Ordered UA W/MICROSCOPIC [URIN] Stat Lab 02/28/18 12:26 Ordered Acetaminophen [Tylenol] Med 02/28/18 15:33 Ordered 650 mg PO Q4H PRN Acetaminophen/HYDROcodone [[place] 325-5 MG] Med 02/28/18 15:33 Ordered 1 tab PO Q4H PRN Albuterol/Ipratropium [DuoNeb 3.0-0.5 MG/3 ML] Med 02/28/18 15:33 Ordered 3 ml NEB Q4H PRN Bisacodyl [Dulcolax] Med 02/28/18 15:33 Ordered 5 mg PO DAILY PRN Diltiazem 125 mg Med 02/28/18 15:15 Active Sodium Chloride 0.9% [Normal Saline] 100 ml IV TITRATE Docusate Sodium [Colace] Med 02/28/18 15:33 Ordered 100 mg PO BID PRN Docusate Sodium/Sennosides [Senna Plus] Med 02/28/18 15:33 Ordered 1 tab PO BID PRN Escitalopram Oxalate Med 03/01/18 09:00 Active 20 mg PO DAILY LORazepam [Ativan] Med 02/28/18 15:33 Ordered 1 mg IV Q6H PRN Levothyroxine Med 03/01/18 06:00 Active 175 mcg PO ACBRK Lisinopril/Hydrochlorothiazide [Lisinopril-Hctz 20-12.5 Med 02/28/18 21:00 Active mg Tab] 1 tab PO BID Metoprolol Tartrate [Lopressor] Med 02/28/18 15:32 Ordered 5 mg IVPUSH Q4H PRN Metoprolol Tartrate [Lopressor] Med 02/28/18 21:00 Ordered 50 mg PO Q12HR Ondansetron [Zofran] Med 02/28/18 15:33 Ordered 4 mg IV Q6H PRN Polyethylene Glycol 3350 [MiraLAX] Med 02/28/18 15:33 Ordered 17 gm PO DAILY PRN Potassium Rep Pharmacy to Dose [Pharmacy to Dose - Med 02/28/18 15:45 Ordered Potassium Replacement] 1 dose .XX ASDIRECTED Promethazine [Phenergan] 12.5 mg Med 02/28/18 15:33 Ordered Sodium Chloride 0.9% [Normal Saline] 50 ml IV Q6H Sodium Chloride 0.9% [Normal Saline] 1,000 ml Med 02/28/18 12:45 Active IV ASDIRECTED Sodium Chloride 0.9% [Normal Saline] 250 ml Med 02/28/18 14:30 Active IV ASDIRECTED Sodium Chloride 0.9% [Saline Flush] Med 02/28/18 12:26 Active 10 ml FLUSH ASDIRECTED PRN Sodium Chloride 0.9% [Saline Flush] Med 02/28/18 14:18 Active 10 ml FLUSH ONETIME PRN Temazepam [Restoril] Med 02/28/18 15:33 Ordered 7.5 mg PO BEDTIME PRN hydrALAZINE [Apresoline] Med 02/28/18 15:32 Ordered 20 mg IVPUSH Q4H PRN Peripheral IV Insertion Adult [OM.PC] Routine Oth 02/28/18 12:26 Ordered Resuscitation Status Routine Resus Stat 02/28/18 15:33 Ordered Medication Orders Acetaminophen (Tylenol) 650 mg PO Q4H PRN PRN Reason: Pain (Mild 1-3)/fever Hydrocodone Bitart/Acetaminophen ([place] 325-5 Mg) 1 tab PO Q4H PRN PRN Reason: Pain (moderate 4-6) Albuterol/Ipratropium (Duoneb 3.0-0.5 Mg/3 Ml) 3 ml NEB Q4H PRN PRN Reason: Shortness Of Breath/wheezing Bisacodyl (Dulcolax) 5 mg PO DAILY PRN PRN Reason: Constipation Docusate Sodium (Colace) 100 mg PO BID PRN PRN Reason: Constipation Hydralazine HCl (Apresoline) 20 mg IVPUSH Q4H PRN PRN Reason: Hypertension Sodium Chloride (Normal Saline) 1,000 mls @ 250 mls/hr IV ASDIRECTED BRI Last Admin: 02/28/18 12:58 Dose: 250 mls/hr Sodium Chloride (Normal Saline) 250 mls @ 80 mls/min IV ASDIRECTED BRI Last Admin: 02/28/18 14:51 Dose: 80 mls/min Diltiazem HCl 125 mg/ Sodium (Chloride) 125 mls @ 5 mls/hr IV TITRATE BRI; Protocol Promethazine HCl 12.5 mg/ (Sodium Chloride) 50.5 mls @ 100 mls/hr IV Q6H PRN PRN Reason: Nausea/Vomiting Levothyroxine Sodium (Levothyroxine) 175 mcg PO ACBRK BRI Lorazepam (Ativan) 1 mg IV Q6H PRN PRN Reason: Anxiety Metoprolol Tartrate (Lopressor) 5 mg IVPUSH Q4H PRN PRN Reason: Tachycardia Metoprolol Tartrate (Lopressor) 50 mg PO Q12HR [facility] Non-Formulary Medication (Escitalopram Oxalate) 20 mg PO DAILY [facility] Non-Formulary Medication (Lisinopril/Hydrochlorothiazide [Lisinopril-Hctz 20- 12.5 Mg Tab]) 1 tab PO BID [facility] Ondansetron HCl (Zofran) 4 mg IV Q6H PRN PRN Reason: Nausea/Vomiting Polyethylene Glycol (Miralax) 17 gm PO DAILY PRN PRN Reason: Constipation Potassium Chloride (Pharmacy To Dose - Potassium Replacement) 1 dose .XX ASDIRECTED [facility] Senna/Docusate Sodium (Senna Plus) 1 tab PO BID PRN PRN Reason: Constipation Sodium Chloride (Saline Flush) 10 ml FLUSH ASDIRECTED PRN PRN Reason: Keep Vein Open Last Admin: 02/28/18 12:57 Dose: 10 ml Sodium Chloride (Saline Flush) 10 ml FLUSH ONETIME PRN PRN Reason: IV FLUSH Last Admin: 02/28/18 14:42 Dose: 10 ml Temazepam (Restoril) 7.5 mg PO BEDTIME PRN PRN Reason: Sleep Assessment/Plan Comment:: Assessment/Plan: Acute: Atrial Fibrillation with RVR - New onset - Likely 2/2 thyroid toxicity + large amount of caffeine intake - TSH 0.318 and FT4 1.73; she admits to drinking a pitcher of caffeinated tea daily - She is currently on Cardizem drip, with borderline BP; may need to switch her to BB - Will cut down her thyroid dose by 25 mg dose and advised to limit her intake of tea after discharge - 2D echo in AM for baseline - [id number] score is 3-->Moderate-High risk for stroke w/o anti- coagulation - Discussed Traditional vs DOACs treatment to include risks and benefits; she elected DOACS with preference to Eliquis 5 mg po BID to start tonight Elevated D-Dimer - 2/2 above - D-dimer of 1.11 - Chest CTA-negative for PE - Troponin x2 negative Hypomagnesemia - Mg 1.6 - 2/2 inadequate intake - Replete and monitor Chest CT can Abnormal Findings - Questionable partially visualized staghorn calculus within the left kidney - Recommend CT abdomen w/o contrast Chronic: HTN Hypothyroidism OA/DJD Knee Pain Anxiety Morbid Obesity with BMI of 50.9 Plan: Admit to ICU Cardizem gtt titrate to keep HR < 100; monitor BP if she is intolerant; we may need to switch her to BB (better treatment for thyroid induced) 2D echo in AM for baseline Metroprolol 50 mg po BID Lopressor 5mg IVP Q4H PRN for HR > 110 Resume Home Meds Dietary consult for weight management Screen for Diabetes Routine AM Labs PT/OT consult SW/CM for d/c planning Code status: 1
[2018-02-28] MEDS: Potassium Chloride 20 MEQ Tab.ER PO SCH ×2 (18:15→20:24)
[2018-02-28] MEDS: Acetaminophen 325 MG Tab PO SCH (20:24)
[2018-02-28] MEDS: Apixaban 5 MG Tab PO SCH (20:25)
[2018-02-28] MEDS: Metoprolol Tartrate 50 MG Tab PO SCH (20:25)
[2018-02-28] MEDS ORDERED: Non-Formulary Medication 1 Each (Lisinopril/Hydrochlorothiazide [Lisinopril-Hctz 20-12.5 M PO SCH (21:00)
[2018-03-01] MEDS ORDERED: Sodium Chloride 0.9% 500 ML IV ONE (02:16)
[2018-03-01] MEDS ORDERED: Sodium Chloride 0.9% 500 ML ONE (02:18)
[2018-03-01] MEDS: Levothyroxine 150 MCG Tab PO SCH (06:22)
--- NOTE | 2018-03-01 06:59 | PCM.PN ---
- General Info Date of Service: 03/01/18 Admission Dx/Problem (Free Text): New Onset of Atrial Fibrillation with RVR Subjective Update: Follow Up Functional Status: Reports: Pain Controlled, Tolerating Diet, Ambulating, Urinating - Review of Systems General: Denies: Fever, Weakness, Fatigue, Malaise, Chills HEENT: Reports: No Symptoms Pulmonary: Denies: Shortness of Breath Cardiovascular: Denies: Palpitations, Dyspnea on Exertion, Edema, Lightheadedness Gastrointestinal: Denies: Abdominal Pain, Nausea, Vomiting Genitourinary: Reports: No Symptoms Musculoskeletal: Reports: No Symptoms Skin: Denies: Cyanosis, Mottled, Pallor, Diaphoresis, Bruising Neurological: Reports: Gait Disturbance. Denies: Confusion, Difficulty Walking , Weakness Psychiatric: Denies: Depression, Anxiety, Agitation, Hallucinations Systems Review Comment:: She did not sleep good last night because she could not get comfortable. She was offered sleeping pill but refused it. However she chemically converted at about 3 am with HRs in the 70s. Her repeat ekg this am shows sinus rhythm. She reports no heart palpitations, chest pain or shortness of breath. - Patient Data Vitals - Most Recent: Last Vital Signs Temp 37.1 C 03/01/18 04:00 Pulse 59 L 03/01/18 05:00 Resp 16 03/01/18 04:00 BP 92/56 L 03/01/18 05:00 Pulse Ox 94 L 03/01/18 04:00 Weight - Most Recent: 141.475 kg I&O - Last 24 Hours: Intake & Output 02/28/18 02/28/18 03/01/18 14:59 22:59 06:59 Intake Total 300 515 Output Total 200 350 Balance 100 165 Lab Results Last 24 Hours: Laboratory Results - last 24 hr 02/28/18 02/28/18 02/28/18 Range/Units 12:24 12:24 12:24 WBC 10.05 H (3.98-10.04) K/mm3 RBC 4.32 (3.98-5.22) M/mm3 Hgb 12.4 (11.2-15.7) gm/L Hct 37.8 (34.1-44.9) % MCV 87.5 (79.4-94.8) fl MCH 28.7 (25.6-32.2) pg MCHC 32.8 (32.2-35.5) g/dl RDW Std Deviation 41.7 (36.4-46.3) fL Plt Count 296 (182-369) K/mm3 MPV 10.7 (9.4-12.3) fl Neut % (Auto) (34.0-71.1) % Lymph % (Auto) (19.3-51.7) % [place] % (Auto) (4.7-12.5) % Eos % (Auto) (0.7-5.8) Baso % (Auto) (0.1-1.2) % Neut # (Auto) (1.56-6.13) K/mm3 Lymph # (Auto) (1.18-3.74) K/mm3 [place] # (Auto) (0.24-0.36) K/mm3 Eos # (Auto) (0.04-0.36) K/mm3 Baso # (Auto) (0.01-0.08) K/mm3 Neutrophils % (Manual) 52 (40-60) % Band Neutrophils % 0 (0-10) % Lymphocytes % (Manual) 41 H (20-40) % Atypical Lymphs % 0 % Monocytes % (Manual) 4 (2-10) % Eosinophils % (Manual) 3 (0.7-5.8) % Basophils % (Manual) 0 L (0.1-1.2) Platelet Estimate Adequate RBC Morph Comment Normal PT (8.0-13.0) SECONDS INR APTT (22-36) SECONDS D-Dimer, Quantitative (0.19-0.59) mg/L Sodium 139 (136-145) mEq/L Potassium 3.8 (3.5-5.1) mEq/L Chloride 101 (98-107) mEq/L Carbon Dioxide 24 (21-32) mEq/L Anion Gap 17.8 H (5-15) BUN 24 H (7-18) mg/dL Creatinine 0.9 (0.55-1.02) mg/dL Est Cr Clr Drug Dosing 52.34 mL/min Estimated GFR (MDRD) > 60 (>60) mL/min BUN/Creatinine Ratio 26.7 H (14-18) Glucose 120 H (80-115) mg/dL Hemoglobin A1c (4.50-6.20) % Calcium 9.0 (8.5-10.1) mg/dL Magnesium 1.6 L (1.8-2.4) mg/dl Total Bilirubin 0.4 (0.2-1.0) mg/dL AST 15 (15-37) U/L ALT 19 (14-59) U/L Alkaline Phosphatase 73 (46-116) U/L Troponin I < 0.017 (0.00-0.056) ng/mL NT-Pro-B Natriuret Pep 348 H (0-125) pg/mL Total Protein 7.5 (6.4-8.2) g/dl Albumin 3.4 (3.4-5.0) g/dl Globulin 4.1 gm/dL Albumin/Globulin Ratio 0.8 L (1-2) Free T4 (0.76-1.46) ng/dL TSH 3rd Generation 0.318 L (0.358-3.74) uIU/mL Urine Color (Yellow) Urine Appearance (Clear) Urine pH (5.0-8.0) Ur Specific [place] (1.005-1.030) Urine Protein (Negative) Urine Glucose (UA) (Negative) Urine Ketones (Negative) Urine Occult Blood (Negative) Urine Nitrite (Negative) Urine Bilirubin (Negative) Urine Urobilinogen (0.2-1.0) Ur Leukocyte Esterase (Negative) Urine RBC (0-5) /hpf Urine WBC (0-5) /hpf Ur Epithelial Cells (0-5) /hpf Urine Bacteria (FEW) /hpf Urine Mucus (FEW) /hpf 02/28/18 02/28/18 02/28/18 Range/Units 12:24 12:50 12:50 WBC (3.98-10.04) K/mm3 RBC (3.98-5.22) M/mm3 Hgb (11.2-15.7) gm/L Hct (34.1-44.9) % MCV (79.4-94.8) fl MCH (25.6-32.2) pg MCHC (32.2-35.5) g/dl RDW Std Deviation (36.4-46.3) fL Plt Count (182-369) K/mm3 MPV (9.4-12.3) fl Neut % (Auto) (34.0-71.1) % Lymph % (Auto) (19.3-51.7) % [place] % (Auto) (4.7-12.5) % Eos % (Auto) (0.7-5.8) Baso % (Auto) (0.1-1.2) % Neut # (Auto) (1.56-6.13) K/mm3 Lymph # (Auto) (1.18-3.74) K/mm3 [place] # (Auto) (0.24-0.36) K/mm3 Eos # (Auto) (0.04-0.36) K/mm3 Baso # (Auto) (0.01-0.08) K/mm3 Neutrophils % (Manual) (40-60) % Band Neutrophils % (0-10) % Lymphocytes % (Manual) (20-40) % Atypical Lymphs % % Monocytes % (Manual) (2-10) % Eosinophils % (Manual) (0.7-5.8) % Basophils % (Manual) (0.1-1.2) Platelet Estimate RBC Morph Comment PT 10.7 (8.0-13.0) SECONDS INR 1.00 APTT 28 (22-36) SECONDS D-Dimer, Quantitative 1.11 H (0.19-0.59) mg/L Sodium (136-145) mEq/L Potassium (3.5-5.1) mEq/L Chloride (98-107) mEq/L Carbon Dioxide (21-32) mEq/L Anion Gap (5-15) BUN (7-18) mg/dL Creatinine (0.55-1.02) mg/dL Est Cr Clr Drug Dosing mL/min Estimated GFR (MDRD) (>60) mL/min BUN/Creatinine Ratio (14-18) Glucose (80-115) mg/dL Hemoglobin A1c 5.60 (4.50-6.20) % Calcium (8.5-10.1) mg/dL Magnesium (1.8-2.4) mg/dl Total Bilirubin (0.2-1.0) mg/dL AST (15-37) U/L ALT (14-59) U/L Alkaline Phosphatase (46-116) U/L Troponin I (0.00-0.056) ng/mL NT-Pro-B Natriuret Pep (0-125) pg/mL Total Protein (6.4-8.2) g/dl Albumin (3.4-5.0) g/dl Globulin gm/dL Albumin/Globulin Ratio (1-2) Free T4 (0.76-1.46) ng/dL TSH 3rd Generation (0.358-3.74) uIU/mL Urine Color (Yellow) Urine Appearance (Clear) Urine pH (5.0-8.0) Ur Specific [place] (1.005-1.030) Urine Protein (Negative) Urine Glucose (UA) (Negative) Urine Ketones (Negative) Urine Occult Blood (Negative) Urine Nitrite (Negative) Urine Bilirubin (Negative) Urine Urobilinogen (0.2-1.0) Ur Leukocyte Esterase (Negative) Urine RBC (0-5) /hpf Urine WBC (0-5) /hpf Ur Epithelial Cells (0-5) /hpf Urine Bacteria (FEW) /hpf Urine Mucus (FEW) /hpf 02/28/18 02/28/18 02/28/18 Range/Units 15:05 15:05 15:20 WBC (3.98-10.04) K/mm3 RBC (3.98-5.22) M/mm3 Hgb (11.2-15.7) gm/L Hct (34.1-44.9) % MCV (79.4-94.8) fl MCH (25.6-32.2) pg MCHC (32.2-35.5) g/dl RDW Std Deviation (36.4-46.3) fL Plt Count (182-369) K/mm3 MPV (9.4-12.3) fl Neut % (Auto) (34.0-71.1) % Lymph % (Auto) (19.3-51.7) % [place] % (Auto) (4.7-12.5) % Eos % (Auto) (0.7-5.8) Baso % (Auto) (0.1-1.2) % Neut # (Auto) (1.56-6.13) K/mm3 Lymph # (Auto) (1.18-3.74) K/mm3 [place] # (Auto) (0.24-0.36) K/mm3 Eos # (Auto) (0.04-0.36) K/mm3 Baso # (Auto) (0.01-0.08) K/mm3 Neutrophils % (Manual) (40-60) % Band Neutrophils % (0-10) % Lymphocytes % (Manual) (20-40) % Atypical Lymphs % % Monocytes % (Manual) (2-10) % Eosinophils % (Manual) (0.7-5.8) % Basophils % (Manual) (0.1-1.2) Platelet Estimate RBC Morph Comment PT (8.0-13.0) SECONDS INR APTT (22-36) SECONDS D-Dimer, Quantitative (0.19-0.59) mg/L Sodium (136-145) mEq/L Potassium (3.5-5.1) mEq/L Chloride (98-107) mEq/L Carbon Dioxide (21-32) mEq/L Anion Gap (5-15) BUN (7-18) mg/dL Creatinine (0.55-1.02) mg/dL Est Cr Clr Drug Dosing mL/min Estimated GFR (MDRD) (>60) mL/min BUN/Creatinine Ratio (14-18) Glucose (80-115) mg/dL Hemoglobin A1c (4.50-6.20) % Calcium (8.5-10.1) mg/dL Magnesium (1.8-2.4) mg/dl Total Bilirubin (0.2-1.0) mg/dL AST (15-37) U/L ALT (14-59) U/L Alkaline Phosphatase (46-116) U/L Troponin I < 0.017 (0.00-0.056) ng/mL NT-Pro-B Natriuret Pep (0-125) pg/mL Total Protein (6.4-8.2) g/dl Albumin (3.4-5.0) g/dl Globulin gm/dL Albumin/Globulin Ratio (1-2) Free T4 1.73 H (0.76-1.46) ng/dL TSH 3rd Generation (0.358-3.74) uIU/mL Urine Color Yellow (Yellow) Urine Appearance Clear (Clear) Urine pH 6.0 (5.0-8.0) Ur Specific [place] 1.010 (1.005-1.030) Urine Protein Negative (Negative) Urine Glucose (UA) Negative (Negative) Urine Ketones Negative (Negative) Urine Occult Blood Negative (Negative) Urine Nitrite Negative (Negative) Urine Bilirubin Negative (Negative) Urine Urobilinogen 0.2 (0.2-1.0) Ur Leukocyte Esterase Negative (Negative) Urine RBC 0-5 (0-5) /hpf Urine WBC 0-5 (0-5) /hpf Ur Epithelial Cells 0-5 (0-5) /hpf Urine Bacteria Few (FEW) /hpf Urine Mucus Not seen (FEW) /hpf 03/01/18 Range/Units 05:25 WBC 8.20 (3.98-10.04) K/mm3 RBC 3.98 (3.98-5.22) M/mm3 Hgb 11.4 (11.2-15.7) gm/L Hct 35.7 (34.1-44.9) % MCV 89.7 (79.4-94.8) fl MCH 28.6 (25.6-32.2) pg MCHC 31.9 L (32.2-35.5) g/dl RDW Std Deviation 43.6 (36.4-46.3) fL Plt Count 295 (182-369) K/mm3 MPV 11.1 (9.4-12.3) fl Neut % (Auto) 67.2 (34.0-71.1) % Lymph % (Auto) 20.6 (19.3-51.7) % [place] % (Auto) 9.5 (4.7-12.5) % Eos % (Auto) 2.3 (0.7-5.8) Baso % (Auto) 0.2 (0.1-1.2) % Neut # (Auto) 5.50 (1.56-6.13) K/mm3 Lymph # (Auto) 1.69 (1.18-3.74) K/mm3 [place] # (Auto) 0.78 H (0.24-0.36) K/mm3 Eos # (Auto) 0.19 (0.04-0.36) K/mm3 Baso # (Auto) 0.02 (0.01-0.08) K/mm3 Neutrophils % (Manual) (40-60) % Band Neutrophils % (0-10) % Lymphocytes % (Manual) (20-40) % Atypical Lymphs % % Monocytes % (Manual) (2-10) % Eosinophils % (Manual) (0.7-5.8) % Basophils % (Manual) (0.1-1.2) Platelet Estimate RBC Morph Comment PT (8.0-13.0) SECONDS INR APTT (22-36) SECONDS D-Dimer, Quantitative (0.19-0.59) mg/L Sodium (136-145) mEq/L Potassium (3.5-5.1) mEq/L Chloride (98-107) mEq/L Carbon Dioxide (21-32) mEq/L Anion Gap (5-15) BUN (7-18) mg/dL Creatinine (0.55-1.02) mg/dL Est Cr Clr Drug Dosing mL/min Estimated GFR (MDRD) (>60) mL/min BUN/Creatinine Ratio (14-18) Glucose (80-115) mg/dL Hemoglobin A1c (4.50-6.20) % Calcium (8.5-10.1) mg/dL Magnesium (1.8-2.4) mg/dl Total Bilirubin (0.2-1.0) mg/dL AST (15-37) U/L ALT (14-59) U/L Alkaline Phosphatase (46-116) U/L Troponin I (0.00-0.056) ng/mL NT-Pro-B Natriuret Pep (0-125) pg/mL Total Protein (6.4-8.2) g/dl Albumin (3.4-5.0) g/dl Globulin gm/dL Albumin/Globulin Ratio (1-2) Free T4 (0.76-1.46) ng/dL TSH 3rd Generation (0.358-3.74) uIU/mL Urine Color (Yellow) Urine Appearance (Clear) Urine pH (5.0-8.0) Ur Specific [place] (1.005-1.030) Urine Protein (Negative) Urine Glucose (UA) (Negative) Urine Ketones (Negative) Urine Occult Blood (Negative) Urine Nitrite (Negative) Urine Bilirubin (Negative) Urine Urobilinogen (0.2-1.0) Ur Leukocyte Esterase (Negative) Urine RBC (0-5) /hpf Urine WBC (0-5) /hpf Ur Epithelial Cells (0-5) /hpf Urine Bacteria (FEW) /hpf Urine Mucus (FEW) /hpf Med Orders - Current: Current Medications Acetaminophen (Tylenol) 650 mg PO Q4H PRN PRN Reason: Pain (Mild 1-3)/fever Acetaminophen (Tylenol) 487.5 mg PO BID [facility] Last Admin: 02/28/18 20:24 Dose: 487.5 mg Hydrocodone Bitart/Acetaminophen ([place] 325-5 Mg) 1 tab PO Q4H PRN PRN Reason: Pain (moderate 4-6) Albuterol/Ipratropium (Duoneb 3.0-0.5 Mg/3 Ml) 3 ml NEB Q4H PRN PRN Reason: Shortness Of Breath/wheezing Apixaban (Eliquis) 5 mg PO BID [facility] Last Admin: 02/28/18 20:25 Dose: 5 mg Bisacodyl (Dulcolax) 5 mg PO DAILY PRN PRN Reason: Constipation Docusate Sodium (Colace) 100 mg PO BID PRN PRN Reason: Constipation Hydralazine HCl (Apresoline) 20 mg IVPUSH Q4H PRN PRN Reason: Hypertension Diltiazem HCl 125 mg/ Sodium (Chloride) 125 mls @ 5 mls/hr IV TITRATE [facility]; Protocol Last Titration: 02/28/18 20:25 Dose: 0 mg/hr, 0 mls/hr Promethazine HCl 12.5 mg/ (Sodium Chloride) 50.5 mls @ 100 mls/hr IV Q6H PRN PRN Reason: Nausea/Vomiting Levothyroxine Sodium (Levothyroxine) 150 mcg PO ACBRK [facility] Last Admin: 03/01/18 06:22 Dose: 150 mcg Lorazepam (Ativan) 1 mg IV Q6H PRN PRN Reason: Anxiety Metoprolol Tartrate (Lopressor) 5 mg IVPUSH Q4H PRN PRN Reason: Tachycardia Metoprolol Tartrate (Lopressor) 50 mg PO Q12HR [facility] Last Admin: 02/28/18 20:25 Dose: 50 mg Non-Formulary Medication (Escitalopram Oxalate) 20 mg PO DAILY [facility] Non-Formulary Medication (Lisinopril/Hydrochlorothiazide [Lisinopril-Hctz 20- 12.5 Mg Tab]) 1 tab PO BID [facility] Last Admin: 02/28/18 20:27 Dose: Not Given Ondansetron HCl (Zofran) 4 mg IV Q6H PRN PRN Reason: Nausea/Vomiting Polyethylene Glycol (Miralax) 17 gm PO DAILY PRN PRN Reason: Constipation Potassium Chloride (Pharmacy To Dose - Potassium Replacement) 1 dose .XX ASDIRECTED [facility] Senna/Docusate Sodium (Senna Plus) 1 tab PO BID PRN PRN Reason: Constipation Sodium Chloride (Saline Flush) 10 ml FLUSH ASDIRECTED PRN PRN Reason: Keep Vein Open Last Admin: 02/28/18 12:57 Dose: 10 ml Sodium Chloride (Saline Flush) 10 ml FLUSH ONETIME PRN PRN Reason: IV FLUSH Last Admin: 02/28/18 14:42 Dose: 10 ml Temazepam (Restoril) 7.5 mg PO BEDTIME PRN PRN Reason: Sleep Discontinued Medications Aspirin (Aspirin) 324 mg PO ONETIME ONE Stop: 02/28/18 12:44 Last Admin: 02/28/18 12:55 Dose: 324 mg Diltiazem HCl (Diltiazem) 20 mg IVPUSH ONETIME ONE Stop: 02/28/18 12:44 Last Admin: 02/28/18 12:52 Dose: 20 mg Diltiazem HCl (Diltiazem) 20 mg IVPUSH ONETIME ONE Stop: 02/28/18 13:17 Last Admin: 02/28/18 13:31 Dose: 20 mg Diltiazem HCl (Cardizem Cd) 180 mg PO ONETIME ONE Stop: 02/28/18 13:20 Last Admin: 02/28/18 13:33 Dose: 180 mg Diltiazem HCl (Diltiazem) 10 mg IVPUSH ONETIME ONE Stop: 02/28/18 15:12 Last Admin: 02/28/18 15:36 Dose: 10 mg Magnesium Sulfate 2 gm/ Premix 50 mls @ 25 mls/hr IV ONETIME ONE Stop: 02/28/18 14:44 Last Admin: 02/28/18 12:56 Dose: 25 mls/hr Sodium Chloride (Normal Saline) 1,000 mls @ 250 mls/hr IV ASDIRECTED [facility] Last Admin: 02/28/18 12:58 Dose: 250 mls/hr Sodium Chloride (Normal Saline) 250 mls @ 80 mls/min IV ASDIRECTED [facility] Last Admin: 02/28/18 14:51 Dose: 80 mls/min Sodium Chloride (Normal Saline) 500 mls @ 999 mls/hr IV .BOLUS ONE Stop: 03/01/18 02:46 Last Admin: 03/01/18 02:30 Dose: 999 mls/hr Sodium Chloride (Normal Saline) Confirm Administered Dose 500 mls @ as directed .ROUTE .STK-MED ONE Stop: 03/01/18 02:19 Last Admin: 03/01/18 02:28 Dose: Not Given Iopamidol (Isovue-370 (76%)) 100 ml IVPUSH ONETIME ONE Stop: 02/28/18 14:19 Last Admin: 02/28/18 14:42 Dose: 100 ml Iopamidol (Isovue-370 (76%)) 50 ml IVPUSH ONETIME ONE Stop: 02/28/18 14:19 Last Admin: 02/28/18 14:42 Dose: 50 ml Levothyroxine Sodium (Levothyroxine) 175 mcg PO ACBRK BRI Potassium Chloride (Klor-Con M20) 40 meq PO Q4H BRI Stop: 02/28/18 21:01 Last Admin: 02/28/18 20:24 Dose: 40 meq - Exam Quality Assessment: Supplemental Oxygen General: Alert, Oriented, Cooperative, No Acute Distress, Other (Morbid Obesity) HEENT: Pupils Equal, Pupils Reactive, EOMI, Mucous Membr. Moist/[place] Neck: Supple, Trachea Midline, No JVD, No Thyromegaly, Other (short and thick) Lungs: Clear to Auscultation, Normal Respiratory Effort Cardiovascular: Regular Rate, Regular Rhythm GI/Abdominal Exam: Normal Bowel Sounds, Soft, Non-Tender, No Organomegaly, No Distention, No Abnormal Bruit, No Mass (Female) Exam: Deferred Back Exam: Normal Inspection, Decreased Range of Motion Extremities: Normal Inspection, Normal Range of Motion (right lower extremity), Non-Tender, No Pedal Edema, Normal Capillary Refill, Limited Range of Motion ( left knee), Other (trace bilateral lower extremity edema) Peripheral Pulses: 2+: Dorsalis Pedis (L), Dorsalis Pedis (R) Skin: Warm, Dry, Intact Neurological: No New Focal Deficit. No: Normal Gait Psy/Mental Status: Alert, Normal Affect, Normal Mood. No: Anxious - Problem List Review Problem List Initiated/Reviewed/Updated: Yes - My Orders Last 24 Hours: My Active Orders 02/28/18 15:32 Metoprolol Tartrate [Lopressor] 5 mg IVPUSH Q4H PRN hydrALAZINE [Apresoline] 20 mg IVPUSH Q4H PRN 02/28/18 15:33 Ambulate [RC] ASDIRECTED Cardiac Monitoring [RC] CONTINUOUS Height and Weight [RC] 04 Intake and Output [RC] 04,16 Up ad [place]lette [RC] ASDIRECTED VTE/DVT Education [RC] Acetaminophen [Tylenol] 650 mg PO Q4H PRN Acetaminophen/HYDROcodone [[place] 325-5 MG] 1 tab PO Q4H PRN Albuterol/Ipratropium [DuoNeb 3.0-0.5 MG/3 ML] 3 ml NEB Q4H PRN Bisacodyl [Dulcolax] 5 mg PO DAILY PRN Docusate Sodium [Colace] 100 mg PO BID PRN Docusate Sodium/Sennosides [Senna Plus] 1 tab PO BID PRN LORazepam [Ativan] 1 mg IV Q6H PRN Ondansetron [Zofran] 4 mg IV Q6H PRN Polyethylene Glycol 3350 [MiraLAX] 17 gm PO DAILY PRN Promethazine [Phenergan] 12.5 mg Sodium Chloride 0.9% [Normal Saline] 50 ml IV Q6H Temazepam [Restoril] 7.5 mg PO BEDTIME PRN Resuscitation Status Routine 02/28/18 15:34 RT Aerosol Therapy [RC] ASDIRECTED Consult to Case Management [CONS] Routine Consult to Crime Victim Specialist [CONS] Routine Consult to Armhole [employer] [CONS] Routine 02/28/18 15:45 Potassium Rep Pharmacy to Dose [Pharmacy to Dose - Potassium Replacement] 1 dose .XX ASDIRECTED 02/28/18 21:00 Acetaminophen [Tylenol] 487.5 mg PO BID Apixaban [Eliquis] 5 mg PO BID Lisinopril/Hydrochlorothiazide [Lisinopril-Hctz 20-12.5 mg Tab] 1 tab PO BID Metoprolol Tartrate [Lopressor] 50 mg PO Q12HR 02/28/18 Dinner Heart Healthy Diet [DIET] 03/01/18 03:17 EKG Documentation Completion [RC] ASDIRECTED EKG 12 Lead [EK] Routine 03/01/18 05:25 BASIC METABOLIC PANEL,BMP [CHEM] AM MAGNESIUM [CHEM] AM 03/01/18 06:00 Levothyroxine 150 mcg PO ACBRK 03/01/18 07:00 Echo Comp wo Cont [US] Routine 03/01/18 09:00 Escitalopram Oxalate 20 mg PO DAILY 03/02/18 05:11 BASIC METABOLIC PANEL,BMP [CHEM] AM MAGNESIUM [CHEM] AM 03/03/18 05:11 BASIC METABOLIC PANEL,BMP [CHEM] AM MAGNESIUM [CHEM] AM - Plan Plan:: Assessment/Plan: Acute: Atrial Fibrillation S/p RVR, HR controlled - New onset - Likely 2/2 thyroid toxicity + large amount of caffeine intake - TSH 0.318 and FT4 1.73; she admits to drinking a pitcher of caffeinated tea daily - She is now off Cardizem drip,; continue Metoprolol 50 mg po BID - Will cut down her thyroid dose by 25 mg dose and advised to limit her intake of tea after discharge - 2D echo completed this AM - [id number] score is 3-->Moderate-High risk for stroke w/o anti- coagulation - Discussed Traditional vs DOACs treatment to include risks and benefits; continue Eliquis 5 mg po BID Relative Hypotension - She is asymptomatic and stable MAP - Received one time bolus of 500 ml of NS last night - 2/2 recent cardizem use - Hold home BP meds and continue to monitor Chest CT can Abnormal Findings - Questionable partially visualized staghorn calculus within the left kidney ; she has no symptoms - Offered inpatient imaging; refused it - Recommend CT abdomen w/o contrast outpatient Resolved: S/p Elevated D-Dimer - D-dimer of 1.11 - Chest CTA-negative for PE - Troponin x2 negative S/p Hypomagnesemia - Mg 1.6--> 2.2 - 2/2 inadequate intake - Replete and monitor Chronic: HTN Hypothyroidism OA/DJD Knee Pain Anxiety Morbid Obesity with BMI of 50.9 Plan: She is much better clinically She remains in ICU until hypotension completely resolves Continue current treatment 2D echo in AM for baseline Dietary consult for weight management Screen for Diabetes A1C: 5.6 (no diabetes) Routine AM Labs Continue PT/OT SW/CM for d/c planning Code status: 1 Possible d/c in AM Updated family about her clinical progress and discharge care plan tomorrow
--- NOTE | 2018-03-01 07:30 | CR ---
Chest: Portable view of the chest was obtained. Comparison: No prior chest x-ray. Heart is somewhat enlarged. Tortuous thoracic aorta is seen. Pulmonary vasculature appears within normal limits for portable technique. Lungs show no acute parenchymal change. Bony structures are osteopenic. Minimal scoliosis is noted within the spine. Impression: 1. Cardiomegaly. Nothing acute is appreciated on portable chest x-ray. Diagnostic code #2
[2018-03-01] MEDS ORDERED: Citalopram 20 MG Tab PO SCH (09:00)
[2018-03-01] MEDS: Apixaban 5 MG Tab PO SCH ×2 (09:11→20:22)
[2018-03-01] MEDS: Hydrochlorothiazide 12.5 MG Cap PO SCH ×2 (09:13→21:20)
[2018-03-01] MEDS: Metoprolol Tartrate 50 MG Tab PO SCH ×2 (09:13→20:22)
[2018-03-01] MEDS: Acetaminophen 325 MG Tab PO SCH ×2 (09:14→20:22)
[2018-03-01] MEDS: Lisinopril 20 MG Tab PO SCH ×2 (09:16→21:20)
[2018-03-01] MEDS ORDERED: Escitalopram 20 MG Tab PO SCH (13:20)
[2018-03-01] MEDS: Escitalopram 20 MG Tab PO SCH (14:10)
[2018-03-02] MEDS: Levothyroxine 150 MCG Tab PO SCH (05:00)
[2018-03-02 09:17] VITALS: BP 96/54
[2018-03-02] MEDS: Apixaban 5 MG Tab PO SCH (09:19)
[2018-03-02] MEDS: Lisinopril 20 MG Tab PO SCH (09:20)
[2018-03-02] MEDS: Metoprolol Tartrate 50 MG Tab PO SCH (09:21)
[2018-03-02] MEDS: Hydrochlorothiazide 12.5 MG Cap PO SCH (09:21)
[2018-03-02] MEDS: Acetaminophen 325 MG Tab PO SCH (09:21)
[2018-03-02] MEDS: Escitalopram 20 MG Tab PO SCH (09:24)
--- NOTE | 2018-03-02 10:57 | PCM.DCSUM1 ---
Discharge Summary - Hospital Course Brief History: This is a 72 yo elderly white female with past medical hx/o HTN, OA/DJD, Hypothyroidism and Morbid Obesity who comes in to day for heart palpitations that has been going on for a month now, on and off. She does not follow a carbon grinder and [place] 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 Upon presentation to ED, she was found with a HR in the 150s. Her initial work up in ED shows a CBC remarkable for WBC of 10.05, and Lymphocytes of 41%. Her coagulation studies show a PT of 10.7, INR of 1, APTT of 28 and D-Dimer of 1.11. Her chemistry is significant for AG of 17.8, BUN of 24, BS of 120, Mg of 1.6, ProBNP of 348, FT4 of 1.73 and TSH of 0.318. Her UA is negative for UTI. Her CXR and Chest CT scan both show no acute abnormal findings. Patient is being admitted for medical management of atrial fibrillation with rvr. - Discharge Data Discharge Date: 03/02/18 Discharge Disposition: Home, Self-Care 01 Condition: Good - Discharge Diagnosis/Problem(s) (1) New onset atrial fibrillation SNOMED Code(s): 84530166 ICD Code: I48.91 - UNSPECIFIED ATRIAL FIBRILLATION Status: Resolved (2) Hypotension due to medication Status: Acute (3) Renal calculi SNOMED Code(s): 86815046 ICD Code: N20.0 - CALCULUS OF KIDNEY Status: Acute (4) D-dimer, elevated SNOMED Code(s): 131293134 ICD Code: R79.89 - OTHER SPECIFIED ABNORMAL FINDINGS OF BLOOD CHEMISTRY Status: Acute (5) Hypomagnesemia syndrome SNOMED Code(s): 549750317 ICD Code: E83.42 - HYPOMAGNESEMIA Status: Acute (6) Thyroid toxicity, exogenous SNOMED Code(s): 5244166 ICD Code: E05.80 - OTHER THYROTOXICOSIS WITHOUT THYROTOXIC CRISIS OR STORM Status: Acute (7) Caffeine adverse reaction SNOMED Code(s): 508727674 ICD Code: T43.615A - ADVERSE EFFECT OF CAFFEINE, INITIAL ENCOUNTER Status: Acute Qualifiers: Encounter type: initial encounter Qualified Code(s): T43.615A - Adverse effect of caffeine, initial encounter - Patient Summary/Data Operative Procedure(s) Performed: None Complications: None Consults: Consultations 02/28/18 15:34 Consult to Case Management [CONS] Routine Consult to Superintendent Nonselling [CONS] Routine Consult to Applications Systems Analyst [CONS] Routine 03/01/18 08:42 Consult to Dietary [Consult to Superintendent Nonselling] [CONS] Routine Labs Pending at D/C: None Recommended Follow-up Testing/Procedures: None Planned Operative Procedure(s) after DC: None Hospital Course: Patient was primarily admitted for medical management of new onset of atrial fibrillation with RVR. She carried no previous hx/o it in the past. However she had predisposing factors such as HTN, DM2, Hypothyroidism and Morbid Obesity. We felt her atrial fibrillation was due to thyroid toxicity +/- excessive caffein intake. This finding was supported by considerably reduced TSH level on thyroid panel. Upon presentation to ED, she was found with heart rates in the 140s. She received initial care before she was sent to the unit for further treatment. In the unit, she was managed medically with cardizem gtt but was immediate switched to oral beta wendy regimen once her rate was fully controlled. Patient elected to be put on eliquis for stroke prophylaxis. Her hospital course was uncomplicated and the rest of her chronic medical illness remained stable during this admission. Patient was stable upon discharge. She was advised to call or follow up with her PCP for any questions or concerns after discharge. She was further advised to come back or seek immediate care should her symptoms persist or get worse. - Patient Instructions Diet: Heart Healthy Diet, Usual Diet as Tolerated, Weight Loss Diet Activity: As Tolerated Driving: May Drive Today Showering/Bathing: May Shower Notify Provider of: Fever, Increased Pain, Nausea and/or Vomiting Other/Special Instructions: - Please take all new medications as directed. - Resume Routine Home Medications except for the changes as noted/discussed over. - Check your vitals at least 3x/day and show log on follow up appointment with your PCP. - Recommend lifestyle modifications. - Recommend outpatient CT scan for futher details of your suspected renal calculi. - Call your family doctor for any questions or concerns after discharge. - Follow up with PCP in 1 -2 week. - Come back or seek immediate care should your symptoms persist or get worse - Discharge Plan Prescriptions/Med Rec: Apixaban [Eliquis] 5 mg PO BID #60 tablet Levothyroxine 150 mcg PO ACBRK #30 tablet Metoprolol Tartrate 25 mg PO BID #60 tablet Home Medications: Home Meds Escitalopram Oxalate [Lexapro] 20 mg PO DAILY 06/02/16 [History] Acetaminophen [Tylenol Extra Strength] 500 mg PO BID 02/28/18 [History] Apixaban [Eliquis] 5 mg PO BID #60 tablet 03/02/18 [Rx] Levothyroxine 150 mcg PO ACBRK #30 tablet 03/02/18 [Rx] Lisinopril/Hydrochlorothiazide [Lisinopril-Hctz 20-12.5 mg Tab] 1 tab PO BID #0 03/02/18 [Rx] Metoprolol Tartrate 25 mg PO BID #60 tablet 03/02/18 [Rx] Patient Handouts: Hyperthyroidism, Hypomagnesemia, Apixaban oral tablets, Atrial Fibrillation, [id number] - Discharge Summary/Plan Comment DC Time >30 min.: Yes (45 mins) Discharge Summary/Plan Comment: Discharge to Home - General Info Date of Service: 03/02/18 Admission Dx/Problem (Free Text: New Onset of Atrial Fibrillation with RVR Subjective Update: Follow Up Functional Status: Reports: Pain Controlled, Tolerating Diet, Ambulating, Urinating. Denies: New Symptoms - Review of Systems General: Denies: Fever, Weakness, Fatigue, Malaise, Chills HEENT: Reports: No Symptoms Pulmonary: Denies: Shortness of Breath, Pleuritic Chest Pain, Cough Cardiovascular: Denies: Chest Pain, Palpitations, Dyspnea on Exertion, Edema, Lightheadedness Gastrointestinal: Denies: Abdominal Pain, Nausea, Vomiting Genitourinary: Reports: No Symptoms Musculoskeletal: Reports: No Symptoms, Joint Pain Skin: Denies: Cyanosis, Jaundice, Mottled, Pallor, Diaphoresis, Bruising, Pruritis Neurological: Reports: Gait Disturbance. Denies: Confusion, Pre-Existing Deficit, Difficulty Walking, Weakness Psychiatric: Denies: Depression, Anxiety, Agitation, Hallucinations, Suicidal Ideation Systems Review Comment: No overnight or acute issues. She is doping relatively well. She denies any new complaints. - Patient Data Vitals - Most Recent: Last Vital Signs Temp 36.5 C 03/02/18 04:00 Pulse 65 03/02/18 09:00 Resp 19 03/02/18 09:00 BP 96/54 L 03/02/18 09:00 Pulse Ox 96 03/02/18 09:00 Weight - Most Recent: 142.836 kg I&O - Last 24 hours: Intake & Output 03/01/18 03/02/18 03/02/18 22:59 06:59 14:59 Intake Total 1040 400 120 Output Total 350 600 Balance 690 -200 120 Lab Results - Last 24 hrs: Laboratory Results - last 24 hr 03/02/18 Range/Units 05:46 Sodium 140 (136-145) mEq/L Potassium 4.6 (3.5-5.1) mEq/L Chloride 105 (98-107) mEq/L Carbon Dioxide 28 (21-32) mEq/L Anion Gap 11.6 (5-15) BUN 21 H (7-18) mg/dL Creatinine 0.8 (0.55-1.02) mg/dL Est Cr Clr Drug Dosing 58.88 mL/min Estimated GFR (MDRD) > 60 (>60) mL/min BUN/Creatinine Ratio 26.3 H (14-18) Glucose 113 (80-115) mg/dL Calcium 8.9 (8.5-10.1) mg/dL Magnesium 1.9 (1.8-2.4) mg/dl Med Orders - Current: Current Medications Acetaminophen (Tylenol) 650 mg PO Q4H PRN PRN Reason: Pain (Mild 1-3)/fever Acetaminophen (Tylenol) 487.5 mg PO BID [facility] Last Admin: 03/02/18 09:21 Dose: 487.5 mg Hydrocodone Bitart/Acetaminophen ([facility] 325-5 Mg) 1 tab PO Q4H PRN PRN Reason: Pain (moderate 4-6) Albuterol/Ipratropium (Duoneb 3.0-0.5 Mg/3 Ml) 3 ml NEB Q4H PRN PRN Reason: Shortness Of Breath/wheezing Apixaban (Eliquis) 5 mg PO BID [facility] Last Admin: 03/02/18 09:19 Dose: 5 mg Bisacodyl (Dulcolax) 5 mg PO DAILY PRN PRN Reason: Constipation Docusate Sodium (Colace) 100 mg PO BID PRN PRN Reason: Constipation Hydralazine HCl (Apresoline) 20 mg IVPUSH Q4H PRN PRN Reason: Hypertension Hydrochlorothiazide (Hydrochlorothiazide) 12.5 mg PO BID [facility] Last Admin: 03/02/18 09:21 Dose: Not Given Diltiazem HCl 125 mg/ Sodium (Chloride) 125 mls @ 5 mls/hr IV TITRATE [facility]; Protocol Last Titration: 02/28/18 20:25 Dose: 0 mg/hr, 0 mls/hr Promethazine HCl 12.5 mg/ (Sodium Chloride) 50.5 mls @ 100 mls/hr IV Q6H PRN PRN Reason: Nausea/Vomiting Levothyroxine Sodium (Levothyroxine) 150 mcg PO ACBRK [facility] Last Admin: 03/02/18 05:00 Dose: 150 mcg Lisinopril (Prinivil) 20 mg PO BID [facility] Last Admin: 03/02/18 09:20 Dose: Not Given Lorazepam (Ativan) 1 mg IV Q6H PRN PRN Reason: Anxiety Metoprolol Tartrate (Lopressor) 5 mg IVPUSH Q4H PRN PRN Reason: Tachycardia Metoprolol Tartrate (Lopressor) 50 mg PO Q12HR [facility] Last Admin: 03/02/18 09:21 Dose: Not Given Ondansetron HCl (Zofran) 4 mg IV Q6H PRN PRN Reason: Nausea/Vomiting Escitalopram 20 Mg (Tab) 20 each PO DAILY [facility] Last Admin: 03/02/18 09:24 Dose: 20 each Polyethylene Glycol (Miralax) 17 gm PO DAILY PRN PRN Reason: Constipation Potassium Chloride (Pharmacy To Dose - Potassium Replacement) 1 dose .XX ASDIRECTED [facility] Senna/Docusate Sodium (Senna Plus) 1 tab PO BID PRN PRN Reason: Constipation Sodium Chloride (Saline Flush) 10 ml FLUSH ASDIRECTED PRN PRN Reason: Keep Vein Open Last Admin: 02/28/18 12:57 Dose: 10 ml Sodium Chloride (Saline Flush) 10 ml FLUSH ONETIME PRN PRN Reason: IV FLUSH Last Admin: 02/28/18 14:42 Dose: 10 ml Temazepam (Restoril) 7.5 mg PO BEDTIME PRN PRN Reason: Sleep Discontinued Medications Aspirin (Aspirin) 324 mg PO ONETIME ONE Stop: 02/28/18 12:44 Last Admin: 02/28/18 12:55 Dose: 324 mg Citalopram Hydrobromide (Celexa) 40 mg PO DAILY [facility] Last Admin: 03/01/18 09:11 Dose: Not Given Diltiazem HCl (Diltiazem) 20 mg IVPUSH ONETIME ONE Stop: 02/28/18 12:44 Last Admin: 02/28/18 12:52 Dose: 20 mg Diltiazem HCl (Diltiazem) 20 mg IVPUSH ONETIME ONE Stop: 02/28/18 13:17 Last Admin: 02/28/18 13:31 Dose: 20 mg Diltiazem HCl (Cardizem Cd) 180 mg PO ONETIME ONE Stop: 02/28/18 13:20 Last Admin: 02/28/18 13:33 Dose: 180 mg Diltiazem HCl (Diltiazem) 10 mg IVPUSH ONETIME ONE Stop: 02/28/18 15:12 Last Admin: 02/28/18 15:36 Dose: 10 mg Magnesium Sulfate 2 gm/ Premix 50 mls @ 25 mls/hr IV ONETIME ONE Stop: 02/28/18 14:44 Last Admin: 02/28/18 12:56 Dose: 25 mls/hr Sodium Chloride (Normal Saline) 1,000 mls @ 250 mls/hr IV ASDIRECTED [facility] Last Admin: 02/28/18 12:58 Dose: 250 mls/hr Sodium Chloride (Normal Saline) 250 mls @ 80 mls/min IV ASDIRECTED [facility] Last Admin: 02/28/18 14:51 Dose: 80 mls/min Sodium Chloride (Normal Saline) 500 mls @ 999 mls/hr IV .BOLUS ONE Stop: 03/01/18 02:46 Last Admin: 03/01/18 02:30 Dose: 999 mls/hr Sodium Chloride (Normal Saline) Confirm Administered Dose 500 mls @ as directed .ROUTE .STK-MED ONE Stop: 03/01/18 02:19 Last Admin: 03/01/18 02:28 Dose: Not Given Iopamidol (Isovue-370 (76%)) 100 ml IVPUSH ONETIME ONE Stop: 02/28/18 14:19 Last Admin: 02/28/18 14:42 Dose: 100 ml Iopamidol (Isovue-370 (76%)) 50 ml IVPUSH ONETIME ONE Stop: 02/28/18 14:19 Last Admin: 02/28/18 14:42 Dose: 50 ml Levothyroxine Sodium (Levothyroxine) 175 mcg PO ACBRK [facility] Non-Formulary Medication (Lisinopril/Hydrochlorothiazide [Lisinopril-Hctz 20- 12.5 Mg Tab]) 1 tab PO BID [facility] Last Admin: 02/28/18 20:27 Dose: Not Given Escitalopram 20 Mg (Tab) 20 each PO DAILY [facility] Potassium Chloride (Klor-Con M20) 40 meq PO Q4H [facility] Stop: 02/28/18 21:01 Last Admin: 02/28/18 20:24 Dose: 40 meq - Exam General: Reports: Alert, Oriented, Cooperative, No Acute Distress, Other ( Morbidly Obese) HEENT: Reports: Pupils Equal, Pupils Reactive, EOMI, Mucous Membr. Moist/[place] Neck: Reports: Supple, Trachea Midline, No JVD, No Thyromegaly, Other (short and thick) Lungs: Reports: Clear to Auscultation, Normal Respiratory Effort Cardiovascular: Reports: Regular Rate, Regular Rhythm GI/Abdominal Exam: Normal Bowel Sounds, Soft, Non-Tender, No Organomegaly, No Distention, No Abnormal Bruit, No Mass (Female) Exam: Deferred Rectal (Female) Exam: Deferred Back Exam: Reports: Normal Inspection, Decreased Range of Motion Extremities: Normal Inspection, Normal Range of Motion, Non-Tender, No Pedal Edema, Normal Capillary Refill Skin: Reports: Warm, Dry, Intact. Denies: Ecchymosis Neurological: Reports: No New Focal Deficit. Denies: Normal Gait Psy/Mental Status: Reports: Alert, Normal Affect, Normal Mood
== END 2018-03-02 11:24 | disposition home or self-care (01) | DRG 309 ==
LOC: JD.ED 12:10 → SUPCPDRO 12:10 → JD.ICU 16:07
PROVIDERS: ADMIT Internal Medicine; ATTEND Internal Medicine
DX: I48.91 Unspecified atrial fibrillation (principal); Z68.43 Body mass index [BMI] 50.0-59.9, adult; E05.80 Other thyrotoxicosis without thyrotoxic crisis or storm; T43.615A Adverse effect of caffeine, initial encounter; R79.1 Abnormal coagulation profile; E83.42 Hypomagnesemia; N20.0 Calculus of kidney; I10 Essential (primary) hypertension; E03.9 Hypothyroidism, unspecified; M19.90 Unspecified osteoarthritis, unspecified site; M25.569 Pain in unspecified knee; E66.01 Morbid (severe) obesity due to excess calories; F32.9 Major depressive disorder, single episode, unspecified; F41.9 Anxiety disorder, unspecified; I95.2 Hypotension due to drugs; Z88.0 Allergy status to penicillin; Z88.8 Allergy status to other drugs, medicaments and biological substances; Z79.82 Long term (current) use of aspirin; Z79.899 Other long term (current) drug therapy
CPT/HCPCS: 36415; 71045; 71275; 80053; 81001; 83036; 83735; 83880; 84439; 84443; 84484 ×2; 85025; 85379; 85610; 85730; 96365; 96375; 96376; 99285; A9270 ×2; J3490 ×3; J7030; J7040; J7050 ×3; Q9967 ×2; 80048; 93005; 93306; 99223; 99232; 99239; J3475